=== PATIENT | female | born 1975 | race Caucasian/White ===

== ENCOUNTER 2017-02-15 14:13 | Inpatient (IN) | payer MEDICAID ==
[~2017-02-15] VITALS: Ht 152.4 cm; Wt 100.8 kg
[~2017-02-15 14:13] MED LIST: ALD25 PO; ALD50 PO; BACO TOP; CARVEDILOL6.25 M1 PO; COR6 PO; ECO81 PO; HIBICLENS118 ML TOP; KEN5C; LASIX40 MG PO; LEVOFLOXACIN750 M1 PO; NATURAL IRON65 MG PO; NICOTINE T14 MG/24 H TOP; PRENATAL VITAMI1 TA1 PO; ZES10 PO
[2017-02-15 15:42] LABS: CALCIUM 8.9 mg/dL (8.5-10.1); CARBON DIOXIDE 31.2 mmol/L (21-32); CREATININE SERUM 1.5 mg/dL (0.6-1.0); POTASSIUM SERUM 4.4 mmol/L (3.5-5.1)
[2017-02-15 15:47] LABS: BILIRUBIN TOTAL 2.79 mg/dL (0.20-1.00); TOTAL PROTEIN, SERUM 7.5 g/dL (6.4-8.2)
[2017-02-15 15:48] LABS: ALBUMIN 2.3 g/dL (3.4-5.0)
[2017-02-15 15:49] LABS: BASOPHIL % 0.2 % (0-2); PLATELET COUNT 293 x10^3mcL (130-400)
[2017-02-15 15:51] LABS: RED CELL DISTRIBUTION WIDTH 20.7 % (11.5-14.5)
[2017-02-15 15:54] LABS: rbc morphology (normal/abnorm) ABNORMAL (NORMAL)
[2017-02-15 18:08] LABS: T3 TOTAL 0.92 ng/mL
[2017-02-15 18:15] LABS: MAGNESIUM 2.1 mg/dL (1.8-2.4); PHOSPHOROUS 5.3 mg/dL (2.5-4.9)
[2017-02-15 18:16] LABS: CHOLESTEROL/HDL RATIO 6.3
[2017-02-15 18:35] LABS: FREE T4 1.14 ng/dL (0.76-1.46); FREE THYROXINE INDEX 2.3 ug/dL (1.4-4.5); T4(THYROXINE) 7.3 ug/dL (4.7-13.3)
[2017-02-15 18:50] VITALS: BP 120/95
[2017-02-15 21:17] VITALS: BP 103/26
[2017-02-15 22:17] LABS: microscopic required? NO
[2017-02-15 22:27] LABS: UA SPECIFIC GRAVITY 1.015 (1.005-1.035); urine erythrocyte NEGATIVE (NEGATIVE)
[2017-02-15 22:38] LABS: AMPHETAMINE QUAL UR POSITIVE (NEG <=1000)
[2017-02-16] VITALS (8 sets, daily range): BP systolic 98–119; BP diastolic 25–74
[2017-02-16 07:17] LABS: BASOPHIL % 0.4 % (0-2); PLATELET COUNT 247 x10^3mcL (130-400)
[2017-02-16 07:21] LABS: RED CELL DISTRIBUTION WIDTH 21.3 % (11.5-14.5)
[2017-02-16 07:22] LABS: CALCIUM 8.1 mg/dL (8.5-10.1); CREATININE SERUM 1.4 mg/dL (0.6-1.0); PHOSPHOROUS 4.6 mg/dL (2.5-4.9); POTASSIUM SERUM 3.2 mmol/L (3.5-5.1)
[2017-02-17 01:00] VITALS: BP 102/67
[2017-02-17 05:37] VITALS: BP 95/64
[2017-02-17 05:56] VITALS: Ht 152.4 cm; Wt 100.8 kg
[2017-02-17 06:57] LABS: PHOSPHOROUS 4.7 mg/dL (2.5-4.9)
[2017-02-17 07:41] LABS: BASOPHIL % 0.3 % (0-2); PLATELET COUNT 246 x10^3mcL (130-400)
[2017-02-17 07:46] LABS: RED CELL DISTRIBUTION WIDTH 20.9 % (11.5-14.5)
[2017-02-17 07:47] LABS: rbc morphology (normal/abnorm) ABNORMAL (NORMAL)
[2017-02-17 08:00] LABS: BILIRUBIN TOTAL 1.5 mg/dL (0.20-1.00); CALCIUM 8.3 mg/dL (8.5-10.1); CARBON DIOXIDE 30.7 mmol/L (21-32); CREATININE SERUM 1.6 mg/dL (0.6-1.0); POTASSIUM SERUM 3.8 mmol/L (3.5-5.1); TOTAL PROTEIN, SERUM 7.1 g/dL (6.4-8.2)
[2017-02-17 08:03] LABS: ALBUMIN 2.1 g/dL (3.4-5.0)
[2017-02-17 09:55] VITALS: BP 91/48
[2017-02-17 14:42] VITALS: BP 103/60; BP 146/96
[2017-02-17 17:57] VITALS: BP 146/79
[2017-02-17 20:31] VITALS: BP 97/56
[2017-02-18 05:57] VITALS: BP 99/55
[2017-02-18 06:00] LABS: BASOPHIL % 0.5 % (0-2); PLATELET COUNT 275 x10^3mcL (130-400)
[2017-02-18 06:12] LABS: RED CELL DISTRIBUTION WIDTH 20.9 % (11.5-14.5)
[2017-02-18 06:14] LABS: CALCIUM 8.3 mg/dL (8.5-10.1); CARBON DIOXIDE 28.1 mmol/L (21-32); CREATININE SERUM 1.5 mg/dL (0.6-1.0); MAGNESIUM 2.4 mg/dL (1.8-2.4); POTASSIUM SERUM 3.8 mmol/L (3.5-5.1)
[2017-02-18 08:20] LABS: rbc morphology (normal/abnorm) ABNORMAL (NORMAL); target cell (codocyte) 1+; tear drop cell (dacryocyte) 1+
[2017-02-18] MEDS ORDERED: LEVOFLOXACIN500 M1 PO (08:59)
[2017-02-18] MEDS ORDERED: CLINDAMYCIN HC300 MG PO (09:00)
[2017-02-18] MEDS ORDERED: LAC PO (09:01)
[2017-02-18] MEDS ORDERED: BACO TOP (09:02)
[2017-02-18] MEDS ORDERED: HIBICLENS118 ML TOP (09:04)
[2017-02-18 10:37] VITALS: BP 85/57
[2017-02-18] MEDS ORDERED: [UNRECOGNIZED DRUG - OTHER] TOP (11:07)
[2017-02-18] MEDS ORDERED: TOPROL XL25 MG PO (11:09)
[2017-02-18] MEDS ORDERED: COLACE100 MG PO (15:25)
[2017-02-18] MEDS ORDERED: NOR10T PO (15:26)
[2017-02-18] MEDS ORDERED: LORAZEPAM1 MG PO (15:27)
[2017-02-18 17:55] VITALS: BP 118/70
[2017-02-18 20:21] VITALS: BP 118/70
[2017-02-18 21:14] VITALS: BP 113/66
[2017-02-19 06:40] VITALS: BP 114/58
[2017-02-19 06:47] LABS: CALCIUM 8.4 mg/dL (8.5-10.1); CARBON DIOXIDE 24.3 mmol/L (21-32); CREATININE SERUM 1.5 mg/dL (0.6-1.0); POTASSIUM SERUM 4.6 mmol/L (3.5-5.1)
[2017-02-19 07:03] LABS: BASOPHIL % 0.3 % (0-2); PLATELET COUNT 318 x10^3mcL (130-400)
[2017-02-19 07:23] LABS: RED CELL DISTRIBUTION WIDTH 20.6 % (11.5-14.5); rbc morphology (normal/abnorm) ABNORMAL (NORMAL)
[2017-02-19 09:11] VITALS: BP 154/99
[2017-02-19] MEDS ORDERED: ZYVOX600 MG PO (12:11)
[2017-02-19 13:15] VITALS: BP 154/99
== END 2017-02-19 14:06 | disposition home or self-care (01) | DRG 384 ==
LOC: ED 14:13 → DU 17:15 → MU 02-17 12:45
PROVIDERS: Emergency Medicine; Family Medicine; ADMIT Family Medicine
DX: S80.212S Abrasion, left knee, sequela (principal); N17.0 Acute kidney failure with tubular necrosis; I50.43 Acute on chronic combined systolic (congestive) and diastolic (congestive) heart failure; E43 Unspecified severe protein-calorie malnutrition; I42.0 Dilated cardiomyopathy; L03.116 Cellulitis of left lower limb; I42.7 Cardiomyopathy due to drug and external agent; B95.2 Enterococcus as the cause of diseases classified elsewhere; Z68.41 Body mass index [BMI] 40.0-44.9, adult; E87.1 Hypo-osmolality and hyponatremia; T43.621S Poisoning by amphetamines, accidental (unintentional), sequela; F15.288 Other stimulant dependence with other stimulant-induced disorder; E83.39 Other disorders of phosphorus metabolism; E87.8 Other disorders of electrolyte and fluid balance, not elsewhere classified; F32.9 Major depressive disorder, single episode, unspecified; J44.9 Chronic obstructive pulmonary disease, unspecified; E80.6 Other disorders of bilirubin metabolism; E03.9 Hypothyroidism, unspecified; F17.210 Nicotine dependence, cigarettes, uncomplicated; Z59.0 Homelessness; Z22.322 Carrier or suspected carrier of Methicillin resistant Staphylococcus aureus; Z16.24 Resistance to multiple antibiotics; W01.0XXS Fall on same level from slipping, tripping and stumbling without subsequent striking against object, sequela
CPT/HCPCS: 80307; 83880; 84439; 94150; 97530-GP; J1170; J1885; J1940; J1956; J2001; J2270; J3490; J7030; J7620; Q0092

== ENCOUNTER 2017-02-23 23:56 | Emergency (ER) | payer MEDICAID ==
[~2017-02-23 23:56] MED LIST changes: +CLINDAMYCIN HC300 MG PO; +COLACE100 MG PO; +LAC PO; +LEVOFLOXACIN500 M1 PO; +LORAZEPAM1 MG PO; +NOR10T PO; +TOPROL XL25 MG PO; +ZYVOX600 MG PO; +[UNRECOGNIZED DRUG - OTHER] TOP
[2017-02-24 00:25] VITALS: BP 127/75
[2017-02-24 03:27] LABS: PLATELET COUNT 288 x10^3mcL (130-400)
[2017-02-24 03:28] LABS: BASOPHIL % 4.5 % (0-2); RED CELL DISTRIBUTION WIDTH 21.1 % (11.5-14.5)
[2017-02-24 03:42] LABS: CALCIUM 8.7 mg/dL (8.5-10.1); CREATININE SERUM 1.3 mg/dL (0.6-1.0); POTASSIUM SERUM 4.1 mmol/L (3.5-5.1)
[2017-02-24 03:47] LABS: TOTAL PROTEIN, SERUM 7.3 g/dL (6.4-8.2)
[2017-02-24 03:58] LABS: ALBUMIN 2.6 g/dL (3.4-5.0)
== END 2017-02-24 07:25 | disposition home or self-care (01) ==
LOC: ED 23:56
PROVIDERS: Emergency Medicine
DX: R60.0 Localized edema (principal); L03.116 Cellulitis of left lower limb; I11.0 Hypertensive heart disease with heart failure; Z88.8 Allergy status to other drugs, medicaments and biological substances; Z79.899 Other long term (current) drug therapy
CPT/HCPCS: 83880; J1885

== ENCOUNTER 2017-02-28 15:17 | Inpatient (IN) | payer MEDICAID ==
[~2017-02-28] VITALS: Ht 152.4 cm; Wt 99.3 kg
[2017-02-28 16:33] LABS: BASOPHIL % 0.1 % (0-2); PLATELET COUNT 387 x10^3mcL (130-400)
[2017-02-28 16:47] LABS: RED CELL DISTRIBUTION WIDTH 24.4 % (11.5-14.5)
[2017-02-28 17:15] LABS: CALCIUM 9.3 mg/dL (8.5-10.1); CARBON DIOXIDE 19.2 mmol/L (21-32); CREATININE SERUM 2.2 mg/dL (0.6-1.0); POTASSIUM SERUM 4.6 mmol/L (3.5-5.1)
[2017-02-28 17:16] LABS: ALBUMIN 3.3 g/dL (3.4-5.0); TOTAL PROTEIN, SERUM 8.7 g/dL (6.4-8.2)
[2017-02-28 20:55] LABS: CHOLESTEROL/HDL RATIO 2.5; MAGNESIUM 2.2 mg/dL (1.8-2.4); PHOSPHOROUS 4.7 mg/dL (2.5-4.9)
[2017-02-28 21:00] LABS: T3 TOTAL 1.01 ng/mL
[2017-02-28 21:03] LABS: FREE T4 1.93 ng/dL (0.76-1.46); FREE THYROXINE INDEX 3.9 ug/dL (1.4-4.5); T4(THYROXINE) 11.6 ug/dL (4.7-13.3)
[2017-02-28 21:37] VITALS: BP 139/92
[2017-02-28 21:45] VITALS: BP 139/92
[2017-03-01 02:58] VITALS: Ht 152.4 cm; Wt 99.3 kg
[2017-03-01 06:17] VITALS: BP 119/86
[2017-03-01 07:14] LABS: UA SPECIFIC GRAVITY >=1.030 (1.005-1.035); microscopic required? YES; urine erythrocyte NEGATIVE (NEGATIVE)
[2017-03-01 07:49] LABS: AMPHETAMINE QUAL UR POSITIVE (NEG <=1000)
[2017-03-01 07:54] LABS: BASOPHIL % 0.2 % (0-2); PLATELET COUNT 382 x10^3mcL (130-400)
[2017-03-01 07:55] LABS: RED CELL DISTRIBUTION WIDTH 24.7 % (11.5-14.5)
[2017-03-01 07:56] LABS: rbc morphology (normal/abnorm) ABNORMAL (NORMAL)
[2017-03-01 09:52] LABS: CALCIUM 9.6 mg/dL (8.5-10.1); CARBON DIOXIDE 11.9 mmol/L (21-32); CREATININE SERUM 2.3 mg/dL (0.6-1.0); POTASSIUM SERUM 5.3 mmol/L (3.5-5.1)
[2017-03-01 10:02] LABS: ALBUMIN 3.2 g/dL (3.4-5.0)
[2017-03-01 10:25] VITALS: BP 122/73
[2017-03-01 13:40] VITALS: BP 128/80
[2017-03-01 17:39] VITALS: BP 130/91
[2017-03-01 21:33] VITALS: BP 138/73
[2017-03-02 05:32] VITALS: BP 107/65
[2017-03-02 06:25] LABS: BASOPHIL % 0.4 % (0-2); PLATELET COUNT 305 x10^3mcL (130-400)
[2017-03-02 07:19] LABS: BILIRUBIN TOTAL 1.77 mg/dL (0.20-1.00); CALCIUM 8.3 mg/dL (8.5-10.1); CARBON DIOXIDE 18.4 mmol/L (21-32); CREATININE SERUM 2.3 mg/dL (0.6-1.0); MAGNESIUM 2.1 mg/dL (1.8-2.4); PHOSPHOROUS 4.6 mg/dL (2.5-4.9); POTASSIUM SERUM 3.8 mmol/L (3.5-5.1)
[2017-03-02 07:23] LABS: RED CELL DISTRIBUTION WIDTH 24.7 % (11.5-14.5)
[2017-03-02 07:25] LABS: ALBUMIN 2.5 g/dL (3.4-5.0)
[2017-03-02 09:13] VITALS: BP 111/70
[2017-03-02 13:30] VITALS: BP 112/72
[2017-03-02 17:07] VITALS: BP 130/64
[2017-03-02 21:26] VITALS: BP 95/55
[2017-03-03 05:50] VITALS: BP 96/51
[2017-03-03 06:34] LABS: BASOPHIL % 0.4 % (0-2); PLATELET COUNT 278 x10^3mcL (130-400)
[2017-03-03 07:22] LABS: CALCIUM 7.9 mg/dL (8.5-10.1); CREATININE SERUM 1.9 mg/dL (0.6-1.0); POTASSIUM SERUM 3.7 mmol/L (3.5-5.1)
[2017-03-03 07:25] LABS: RED CELL DISTRIBUTION WIDTH 25.6 % (11.5-14.5)
[2017-03-03 09:39] VITALS: BP 108/70
[2017-03-03 13:55] VITALS: BP 105/75
[2017-03-03 17:12] VITALS: BP 107/73
[2017-03-03 21:20] VITALS: BP 101/66
[2017-03-04 05:19] VITALS: BP 100/58
[2017-03-04 06:20] LABS: BASOPHIL % 0.3 % (0-2); PLATELET COUNT 240 x10^3mcL (130-400)
[2017-03-04 06:32] LABS: CALCIUM 8.1 mg/dL (8.5-10.1); CARBON DIOXIDE 30.8 mmol/L (21-32); CREATININE SERUM 1.5 mg/dL (0.6-1.0); POTASSIUM SERUM 3.7 mmol/L (3.5-5.1)
[2017-03-04 06:38] LABS: RED CELL DISTRIBUTION WIDTH 25.7 % (11.5-14.5)
[2017-03-04 08:40] LABS: rbc morphology (normal/abnorm) ABNORMAL (NORMAL)
[2017-03-04 10:10] VITALS: BP 111/63
[2017-03-04] MEDS ORDERED: NORCO1 TA2 PO (13:20)
[2017-03-04 13:46] VITALS: BP 111/63
== END 2017-03-04 14:23 | disposition home or self-care (01) ==
LOC: ED 15:17 → DU 19:58
PROVIDERS: Emergency Medicine; ADMIT Family Medicine
DX: K81.0 Acute cholecystitis (principal); N17.0 Acute kidney failure with tubular necrosis; I50.43 Acute on chronic combined systolic (congestive) and diastolic (congestive) heart failure; E44.0 Moderate protein-calorie malnutrition; Z68.41 Body mass index [BMI] 40.0-44.9, adult; E87.1 Hypo-osmolality and hyponatremia; I42.7 Cardiomyopathy due to drug and external agent; K76.0 Fatty (change of) liver, not elsewhere classified; T43.621S Poisoning by amphetamines, accidental (unintentional), sequela; I10 Essential (primary) hypertension; E03.9 Hypothyroidism, unspecified; F17.210 Nicotine dependence, cigarettes, uncomplicated; F15.10 Other stimulant abuse, uncomplicated; F32.9 Major depressive disorder, single episode, unspecified; Z53.09 Procedure and treatment not carried out because of other contraindication
CPT/HCPCS: 82962; 83880; 84439; B4164; J1610; J1885; J1940; J1956; J2270; J2550; J3010; J3490; J7030; J7042; Q0092

== ENCOUNTER 2017-03-11 01:57 | Emergency (ER) | payer MEDICAID ==
[~2017-03-11 01:57] MED LIST changes: +NORCO1 TA2 PO
[2017-03-11 02:59] LABS: CALCIUM 8.6 mg/dL (8.5-10.1); CARBON DIOXIDE 30.1 mmol/L (21-32); CREATININE SERUM 1.4 mg/dL (0.6-1.0); PLATELET COUNT 149 x10^3mcL (130-400); POTASSIUM SERUM 3.2 mmol/L (3.5-5.1)
[2017-03-11 03:00] LABS: BASOPHIL % 2.3 % (0-2); RED CELL DISTRIBUTION WIDTH 22.1 % (11.5-14.5)
[2017-03-11 03:03] LABS: BILIRUBIN TOTAL 1.84 mg/dL (0.20-1.00); TOTAL PROTEIN, SERUM 7.3 g/dL (6.4-8.2)
[2017-03-11 03:04] LABS: ALBUMIN 2.8 g/dL (3.4-5.0)
[2017-03-11 03:29] LABS: rbc morphology (normal/abnorm) ABNORMAL (NORMAL)
[2017-03-11 05:55] VITALS: BP 111/74
== END 2017-03-11 05:55 | disposition home or self-care (01) ==
LOC: ED 01:57
PROVIDERS: Emergency Medicine
DX: R25.2 Cramp and spasm (principal); R51 Headache; R06.00 Dyspnea, unspecified; K81.9 Cholecystitis, unspecified; E87.6 Hypokalemia; F32.9 Major depressive disorder, single episode, unspecified; I50.9 Heart failure, unspecified; I10 Essential (primary) hypertension; Z88.0 Allergy status to penicillin
CPT/HCPCS: 36415; Q0092

== ENCOUNTER 2017-03-27 19:20 | Inpatient (IN) | payer MEDICAID ==
[~2017-03-27] VITALS: Ht 152.4 cm; Wt 85.0 kg
--- NOTE | 2017-03-27 20:02 | NUR ---
PT RESTING IN BED WITH C/O LT LEG/KNEE PAIN S/P FALL IN FEBRUARY WITH INCREASING CELLULITIS/PAIN UP TO TODAY.
[2017-03-27 21:02] LABS: BASOPHIL % 0.9 % (0-2); PLATELET COUNT 211 x10^3mcL (130-400)
[2017-03-27 21:04] LABS: CALCIUM 8.4 mg/dL (8.5-10.1); CARBON DIOXIDE 28.7 mmol/L (21-32); CREATININE SERUM 1.2 mg/dL (0.6-1.0); POTASSIUM SERUM 3.1 mmol/L (3.5-5.1)
[2017-03-27 21:40] LABS: RED CELL DISTRIBUTION WIDTH 23.5 % (11.5-14.5)
[2017-03-27] MEDS ORDERED: ALDACTONE25 MG PO (22:28)
[2017-03-27] MEDS ORDERED: GABAPENTIN100 M2 PO (22:29)
--- NOTE | 2017-03-27 22:56 | NUR ---
REPORT GIVEN TO ALISON VARNER.
[2017-03-27 23:04] VITALS: BP 111/70
[2017-03-27 23:19] VITALS: BP 111/70
--- NOTE | 2017-03-27 23:22 | NUR ---
RECEIVED PATIENT FROM ED VIA GUERNEY, PATIENT IN NO ACUTE DISTRESS, NO C/O PAIN AT THIS TIME, ALERT AND ORIENTED, TELE # 14 ST, IV ACCESS TO RIGHT HAND WNL, ORIENTED PATIENT TO ROOM AND SURROUNDINGS, BED IN LOW POSITION, BED RAILS UP X 2, CALL LIGHT WITHIN REACH, WILL ENDORSE CARE TO PRIMARY NURSE SONIDO VRANER
[2017-03-27 23:43] LABS: MAGNESIUM 1.9 mg/dL (1.8-2.4)
[2017-03-27 23:47] LABS: CHOLESTEROL/HDL RATIO 3.1; FREE T4 1.26 ng/dL (0.76-1.46); FREE THYROXINE INDEX 2.6 ug/dL (1.4-4.5); T4(THYROXINE) 6.8 ug/dL (4.7-13.3)
--- NOTE | 2017-03-28 | NUR ---
REC'D REPORT FROM ALISON VARNER. ASSISTED PT TO VOID. AMBULATORY WITH STEADY GAIT. AAOX4, SPEECH CLEAR, FOLLOWS COMMANDS. ON TELE [address] DENIES CP, DIZZINESS, OR PALPITATIONS. REDNESS AND SWELLING TO LLE. ELEVATED WITH PILLOWS. NO COMPLAINTS AT THIS TIME. DENIES RESP DISTRESS, PAIN, OR DISCOMFORT. ORIENTED TO DEVICES AND SURROUNDINGS. CALL LIGHT WITHIN REACH, BED AT LOWEST POSITION. WILL CONTINUE TO MONITOR.
--- NOTE | 2017-03-28 00:11 | NUR ---
REC'D REPORT FROM ALISON VARNER. ASSISTED PT TO VOID. UA COLLECTED. AMBULATORY WITH STEADY GAIT. AAOX4, SPEECH CLEAR, FOLLOWS COMMANDS. ON TELE [address] DENIES CP, DIZZINESS, OR PALPITATIONS. REDNESS AND SWELLING TO LLE. ELEVATED WITH PILLOWS. NO COMPLAINTS AT THIS TIME. DENIES RESP DISTRESS, PAIN, OR DISCOMFORT. ORIENTED TO DEVICES AND SURROUNDINGS. CALL LIGHT WITHIN REACH, BED AT LOWEST POSITION. WILL CONTINUE TO MONITOR.
[2017-03-28 00:17] LABS: T3 TOTAL 1.05 ng/mL
--- NOTE | 2017-03-28 00:23 | NUR ---
UA TO BE COLLECTED. PT STATED SHE "REMEMBERS WIPING" BUT MIGHT HAVE MISSED THE HAT. INSTRUCTED TO TRY NOT TO MISS AND LEAVE URINE IN THE HAT. C/O ANXIETY, PAGEGATED DR. MEJIAS.
[2017-03-28 00:40] LABS: BILIRUBIN DIRECT 1.06 mg/dL (0.0-0.2); BILIRUBIN TOTAL 1.5 mg/dL (0.20-1.00); TOTAL PROTEIN, SERUM 7.6 g/dL (6.4-8.2)
[2017-03-28 01:14] VITALS: BP 111/70
--- NOTE | 2017-03-28 02:17 | NUR ---
NO ORDERS FOR ANXIETY MED. PT RESTING IN BED WITH EYES CLOSED, SNORING. NO SIGNS OF DISTRESS NOTED. BREATHING EVEN/UNLABORED ON RA. LLE ELEVATED WITH PILLOWS. WILL CONTINUE TO MONITOR.
--- NOTE | 2017-03-28 04:30 | NUR ---
URINE COLLECTED AND BROUGHT DOWN TO LAB
[2017-03-28 04:43] LABS: UA SPECIFIC GRAVITY >=1.030 (1.005-1.035); microscopic required? YES; urine erythrocyte NEGATIVE (NEGATIVE)
[2017-03-28 04:52] LABS: AMPHETAMINE QUAL UR POSITIVE (NEG <=1000)
--- NOTE | 2017-03-28 05:29 | NUR ---
PT RESTING IN BED, READING A BOOK. C/O ANXIETY. PT FEELS TIRED. SURPRISED WHEN I INFORMED HER SHE WAS SLEEPING/SNORING THROUGHOUT THE NIGHT. STATES SHE KEPT WAKING UP AND FEELING ANXIOUS. SPOKE TO DR. MEJIAS ABOUT THIS. REPORTED HE WILL ORDER SOMETHING. WILL GIVE ONCE VERIFIED BY PHARMACY. DENIES PAIN OR DISCOMFORT AT THIS TIME. LLE ELEVATED WITH PILLOWS. PT GAVE ME HER DAUGHTER JODY'S NUMBER TO INFORM HER OF HER HOSPITALIZATION. CALL LIGHT WITHIN REACH, BED AT LOWEST POSITION. WILL ENDORSE TO DAY NURSE.
[2017-03-28 05:59] VITALS: BP 103/67
--- NOTE | 2017-03-28 06:01 | NUR ---
ATIVAN GIVEN PER ORDER FOR ANXIETY. WILL MONITOR FOR RELIEF.
--- NOTE | 2017-03-28 06:21 | NUR ---
ATTEMPTED TO CALL DAUGHTER JODY WITH THE PHONE NUMBER GIVEN BY PT- STATED THE GIVEN FROM NUMBER FROM THE ASSESSMENT WAS INCORRECT. UNABLE TO REACH JODY. WAS LED TO THE VOICEMAILS OF OTHER PPL. PT MADE AWARE.
--- NOTE | 2017-03-28 07:10 | NUR ---
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
[2017-03-28 07:37] LABS: CREATININE SERUM 1.1 mg/dL (0.6-1.0); MAGNESIUM 2.1 mg/dL (1.8-2.4); PHOSPHOROUS 3.9 mg/dL (2.5-4.9); POTASSIUM SERUM 3.2 mmol/L (3.5-5.1)
[2017-03-28 07:43] LABS: BASOPHIL % 0.3 % (0-2); PLATELET COUNT 180 x10^3mcL (130-400)
[2017-03-28 07:44] LABS: RED CELL DISTRIBUTION WIDTH 24.3 % (11.5-14.5)
[2017-03-28 07:47] LABS: rbc morphology (normal/abnorm) ABNORMAL (NORMAL)
[2017-03-28 09:29] VITALS: BP 122/85
[2017-03-28 14:00] VITALS: BP 115/80
--- NOTE | 2017-03-28 15:44 | NUR ---
C/O INCREASED ANXIETY, REQUESTING DOSE OF ATIVAN, WILL ADMIN ORDERED.
[2017-03-28 17:45] VITALS: BP 102/67; BP 126/60
--- NOTE | 2017-03-28 18:05 | NUR ---
LATE ENTRY FOR 1640: BINDER CASER REPORTS PT IS NOT AROUSABLE, UPON ASSESSMENT, PT REACTS TO PAINFUL STIMULUS, O2 SAT 88% ORA, ASSISTED TO UPRIGHT POSITION, SLURRED SPEECH NOTED, PLACED ON OXYGEN VIA NC AT 2L/MIN, PATIENT BECAME RESPONSIVE, O2 SAT 96% ON ROOM AIR, PT REMOVED NC, REPORTS FEELING "VERY SLEEPY," DR JIMENEZ MADE AWARE, WILL CONTINUE TO MONITOR CLOSE FOR ALOC AND O2 SATS, CALL LIGHT WITHIN REACH.
--- NOTE | 2017-03-28 19:10 | NUR ---
PT RESTING IN BED WITH EYES CLOSED. SNORING. VERY DROWSY. AWAKENS WITH PAINFUL STIMULUS THEN QUICKLY FALLS ASLEEP AGAIN. UNABLE TO ASSESS ORIENTATION, PERRLA. NO SIGNS OF DISTRESS NOTED. BREATHING EVEN/UNLABORED ON RA. LUNG SOUNDS CLEAR. SOME REDENESS AND SWELLING TO LLE, DIE MAKER. ELEVATED WITH PILLOWS. VOIDING FREELY. AMBULATORY. CALL LIGHT WITHIN REACH, BED AT LOWEST POSITION. WILL CONTINUE TO MONITOR.
--- NOTE | 2017-03-28 19:31 | NUR ---
PT SNORING LOWDLY IN BED, AROUSABLE TO TOUCH, SLOW TO RESPOND, BUT ABLE TO OBINNA NEEDS KNOWN, CURRENT O2 SAT 94% ORA, DENIES SOB, DIZZINESS OR COLEMAN, REPORTS LLE PAIN /10, CONTROLLED AT THIS TIME, NO OTHER SIGNIFICANT CHANGES NOTED, CARE ENDORSED TO NIGHT NURSE.
[2017-03-28 21:15] VITALS: BP 113/60
--- NOTE | 2017-03-28 21:50 | NUR ---
DUE MEDS GIVEN. PT MORE EASILY AROUSABLE AND ABLE TO STAY AWAKE LONGER. FELL BACK ASLEEP AFTER GIVING MEDICATIONS. NO COMPLAINTS OF PAIN OR DISCOMFORT. WILL CONTINUE TO MONITOR.
--- NOTE | 2017-03-29 02:06 | NUR ---
PT C/O PAIN 04/12 TO LLE. NORCO GIVEN PER ORDER. NO SIGNS OF DISTRESS NOTED. BREATHING EVEN/UNLABORED ON RA. CALL LIGHT WITHIN REACH, BED AT LOWEST POSITION. WILL CONTINUE TO MONITOR.
[2017-03-29 05:41] VITALS: BP 103/65
--- NOTE | 2017-03-29 06:00 | NUR ---
PT UP TO VOID. STEADY GAIT. STILL SLEEPY. PICTURES TAKEN OF CELLULITIS TO LLE. ELEVATED WITH PILLOWS. REPORTS SOME KNEE PAIN BUT TOLERABLE. BREATHING EVEN/UNLABORED ON 2L O2 VIA NC. CALL LIGHT WITHIN REACH, BED AT LOWEST POSITION. NO SIGNIFICANT CHANGES DURING SHIFT. WILL ENDORSE TO DAY NURSE.
[2017-03-29 06:19] LABS: CALCIUM 8.4 mg/dL (8.5-10.1); CARBON DIOXIDE 28.1 mmol/L (21-32); CREATININE SERUM 1.1 mg/dL (0.6-1.0); MAGNESIUM 1.8 mg/dL (1.8-2.4); PHOSPHOROUS 3.8 mg/dL (2.5-4.9); POTASSIUM SERUM 3.8 mmol/L (3.5-5.1)
[2017-03-29 06:21] LABS: BASOPHIL % 0.3 % (0-2); PLATELET COUNT 175 x10^3mcL (130-400)
[2017-03-29 07:10] LABS: RED CELL DISTRIBUTION WIDTH 23.7 % (11.5-14.5)
--- NOTE | 2017-03-29 07:52 | NUR ---
RECEIVED SLEEPING BUT AROUSABLE. NO ACUTE DISTRESS NOTED, NO C/O PAIN OR DISCOMFORT. IVF INFUSING WELL AND SITE CLEAR. CALL LIGHT WITHIN REACH. WILL CONTINUE WITH PLAN OF CARE.
--- NOTE | 2017-03-29 09:00 | NUR ---
AM ROUNDS DONE BY DR. RICO AND MEDICAL TEAM, PLAN TO GET OOB AND AMBULATE. PT AGREED WITH PLAN. SLEEPING AT THIS TIME, NO DISTRESS NOTED. NO C/O PAIN OR DISCOMFORT.
[2017-03-29 09:06] VITALS: BP 95/53
[2017-03-29 13:45] VITALS: BP 112/70
--- NOTE | 2017-03-29 14:43 | NUR ---
PT NOTES PM CHART REVIEWED AND CLEARED FOR PT BY RN FOR 2ND SESSION. PATIENT IN SEMIFOWLER POSITION SLEEPING AND DIFFICULT TO AROUSE. PATIENT ABLE TO MAINTAIN AROUSAL FOR FEW SECONDS NEEDS HEAVY TACTILE STIMULUS TO MAINTAIN. PATIENT UNABLE TO MAINTAIN AROUSAL FOR ACTIVE PARTICIPATION IN THERAPY. PATIENT GIVEN A HAND OUT FOR FALL PREVENTION AND ATTEMPTS MADE TO EDUCATE, BUT CLOSES EYES AND SLEEPS. TRAY AND CALL LIGHT IN REACH. CONTACT ISOLATION OBSERVED. WILL FOLLOW UP PATIENT TOMORROW IF POSSIBLE. RN AWARE. PVEx1
--- NOTE | 2017-03-29 15:07 | NUR ---
STILL SLEEPY BUT AROUSABLE. NO ACUTE RESP. DISTRESS NOTED. NO C/O PAIN OR DISCOMFORT AT THIS TIME. CALL LIGHT WITHIN REACH.
--- NOTE | 2017-03-29 16:09 | NUR ---
PT REFUSED HOOSPICE EVAL, STATED "I AM NOT DYING , I'M HERE TO GET BETTER". DR. JIMENEZ MADE AWARE.
[2017-03-29 17:18] VITALS: BP 106/68
--- NOTE | 2017-03-29 17:50 | NUR ---
PT AWAKE AND ALERT. C/O PAIN TO LLE AND ANXIETY, MEDICATED WITH MORPHINE IVP
--- NOTE | 2017-03-29 20:00 | NUR ---
RECEIVED PT IN BED AWAKE, ALERT, ORIENTED X3. DROWSY, BUT EASILY AROUSABLE. NO DISTRESS NOTED. TELE 14 SHOWS NSR. NO CHEST PAIN NOTED. LLE SWELLING AND REDNESS NOTED, ELEVATED WITH PILLOW. 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 PRECAUTIONS ENFORCED. SHIFT ASSESSMENT COMPLETED. IVF INFUSING WELL AT 10ML/HR. SITE INTACT. CALL LIGHT WITHIN REACH. BED IS IN LOWEST POSITION. CALL LIGHT WITHIN REACH. WILL CONTINUE TO MONITOR CLOSELY.
[2017-03-29 21:51] VITALS: BP 117/68
--- NOTE | 2017-03-29 22:30 | NUR ---
PT APPEARS TO BE SLEEPING IN NO DISTRESS. ALL DUE MEDS GIVEN ORDERED, FSBS IS 109. CALL LIGHT WITHIN REACH. WILL CONTINUE TO MONITOR CLOSELY.
--- NOTE | 2017-03-30 01:10 | NUR ---
PT C/O PAIN TO LEFT KNEE, MEDICATE WITH NORCO ORDERED.
--- NOTE | 2017-03-30 03:30 | NUR ---
PT SLEEPING WITH NO FURTHER PAIN NOTED. IVF TKO. WILL CONTINUE TO MONITOR CLOSELY.
--- NOTE | 2017-03-30 05:20 | NUR ---
PT HAD A FOUR SECOND RUN OF VTACH, CHECKED STATUS OF PT, SLEEPING, EASILY AROUSABLE, DROWSY, DENIES CHEST PAIN OR PALPATIONS. BP IS 109/67 WITH MAP OF 81, HR 93. MADE AWARE.
[2017-03-30 05:23] VITALS: BP 110/75
--- NOTE | 2017-03-30 06:10 | NUR ---
FSBS IS 83. PT DROWSY, BUT ORIENTED X3. CLEOCIN INFUSING WELL AT THIS TIME. ALL NEEDS TENDED TO. WILL ENDORSE TO INCOMING SHIFT.
[2017-03-30 06:24] LABS: CALCIUM 8.6 mg/dL (8.5-10.1); CARBON DIOXIDE 27.6 mmol/L (21-32); CREATININE SERUM 1.2 mg/dL (0.6-1.0); MAGNESIUM 1.8 mg/dL (1.8-2.4); PHOSPHOROUS 4.3 mg/dL (2.5-4.9)
[2017-03-30 06:27] LABS: BASOPHIL % 0.2 % (0-2); PLATELET COUNT 189 x10^3mcL (130-400)
--- NOTE | 2017-03-30 07:10 | NUR ---
RECEIVED Pt. SLEEPY EASILY AROUSABLE ORIENTED X4. RESPIRATIONS EVEN AND UNLABORED. NO DISTRESS NOTED. DENIES PAIN/DISCOMFORT AT THIS TIME. ON CONTACT PRECAUTIONS. TELE IN PLACE HEART RATE 103. DENIES CHEST PAIN/PRESSURE. IVF RUNNING TO IV AT RIGHT HAND PATENT AND INTACT. LLE WITH REDNESS AND SWELLING NOTED. BED LOW/LOCKED. CALL LIGHT IN REACH.
[2017-03-30 07:18] LABS: RED CELL DISTRIBUTION WIDTH 23.7 % (11.5-14.5)
--- NOTE | 2017-03-30 08:00 | NUR ---
MADE ROUNDS WITH DR. ACEVES AND MEDICINE TEAM, Pt. TO CONTINUE IV ANTIBIOTICS AND AGREED WITH PLAN OF CARE.
--- NOTE | 2017-03-30 09:34 | NUR ---
Pt. IV AT RIGHT HAND SALINE LOCKED.
[2017-03-30 10:00] VITALS: BP 106/63
--- NOTE | 2017-03-30 11:00 | NUR ---
Pt. SHOWERED AND GOWN CHANGED. Pt. CLEAN AND DRY.
[2017-03-30 14:36] VITALS: BP 112/68
--- NOTE | 2017-03-30 15:09 | NUR ---
PT NOTES TIME [id number] CLEARED BY RN FOR P.M. P.T. TX. PATIENT DECLINED PM P.T. TX AT THIS TIME. EDUCATED PATIENT ON THE IMPORTANCE OF THERAPY & RISK/COMPLICATIONS OF IMMOBILIZATION. PATIENT VERBALIZED UNDERSTANDING, BUT STILL DECLINED. RN NOTIFIED. PRIMARY THERAPIST AWARE. PAZE
--- NOTE | 2017-03-30 16:11 | NUR ---
PHYSICAL THERAPY DAILY NOTES CO-SIGN All documentation done by the Rrt for 03/30/17 has been reviewed. I agree with the documentation. Reviewed/Co-Signed by: Monique Duran DPT Documentation Done by:DARLEEN CHILDERS, DELL I CONCUR W/A.M. DIRECTOR OF MUSIC THERAPY NOTES. CONTINUE W/POC TO Pt TOLERANCE.
--- NOTE | 2017-03-30 17:58 | NUR ---
Pt. REMAINS AAOX4. RESPIRATIONS EVEN AND UNLABORED RA. DENIES PAIN/DISCOMFORT AT THIS TIME. NO DISTRESS NOTED. TELE IN PLACE. IV RIGHT HAND SALINE LOCKED. LLE SLIGHT SWELLING AND REDNESS STILL NOTED. CONTACT PRECAUTIONS OBSERVED. BED LOW/LOCKED. CALL LIGHT IN REACH.
--- NOTE | 2017-03-30 20:06 | NUR ---
PT CURRENTLY RESTING IN BED, NO ACUTE DISTRESS. A/O X4, PT STATES SHE IS FEELING MILD ANXIOUS. TELE #14 SHOWING SINUS TACHYCARDIA. PULSES PALPABLE IN ALL EXTREMITIES, EDEMA NOTED TO LLE. LUNG SOUNDS CTA BILATERALLY. BOWEL SOUNDS ACTIVE, LAST BM 03/29/17. VOIDING WELL. MILD GENERALIZED WEAKNESS NOTED, LLE WEAKNESS NOTED. LLE REDNESS, CELLULITIS. DENIES PAIN AT THIS TIME. IV PATENT AND INTACT. BED IN LOWEST POSITION, SIDE RAILS UP X2, SCDS IN PLACE, CALL LIGHT WITHIN REACH. WILL CONTINUE TO MONITOR.
[2017-03-30 22:39] VITALS: BP 114/76
--- NOTE | 2017-03-31 01:00 | NUR ---
PT CURRENTLY RESTING IN BED, NO ACUTE DISTRESS. WILL CONTINUE TO MONITOR.
[2017-03-31 06:06] VITALS: BP 117/77
[2017-03-31 06:17] LABS: CALCIUM 9.1 mg/dL (8.5-10.1); CARBON DIOXIDE 28.8 mmol/L (21-32); CREATININE SERUM 1.1 mg/dL (0.6-1.0); POTASSIUM SERUM 3.7 mmol/L (3.5-5.1)
--- NOTE | 2017-03-31 06:41 | NUR ---
PT SLEPT PERIODICALLY THROUGHOUT NIGHT, NO ACUTE DISTRESS. ALL NEEDS MET AND ATTENDED TO. NO SIGNIFICANT CHANGES. IV PATENT AND INTACT. BED IN LOWEST POSITION, SIDE RAILS UP X2, SCDS IN PLACE, CALL LIGHT WITHIN REACH. WILL ENDORSE CARE TO ONCOMING NURSE.
--- NOTE | 2017-03-31 08:00 | NUR ---
PT A/A/O/X4. SPEECH APPROPRIATE. DENIES PAIN OR DIZZINESS. ON TELE 22 WITH SINUS RHYTHM. 3L O2 ON NC. RESPIRATIONS EVEN AND UNLABORED. PT STATES SOB ON EXERTION AT TIMES. ON RT PROTOCOLO. SKIN INTACT AND WARM TO TOUCH. PALPABLE PULSES BILAT. PT AMBULATES TO BATHROOM, USES BEDSIDE COMMODE WELL. IV ON LFA. VISITOR/FRIEND PRESENT. NO SIGNS OF DISTRESS. CALL LIGHT IN REACH. WILL CONTINUE TO MONITOR.
--- NOTE | 2017-03-31 08:10 | NUR ---
RECEIVED PT A/A/O/X4 RESTING IN BED WITH EYES CLOSED, RESPIRATIONS EQUAL AND SLIGHTLY LABORED. 95% ON ROOM AIR. ON TELE 14 SINUS RHYTHM. PULSES PALPABLE BUT WEAK BILAT. PT AMBULATES TO BATHROOM. LLE RED AND WARM. EDEMA ON LLE. PT DENIES PAIN. RT HAND IV SALINE LOCKED. CALL LIGHT IN REACH. WILL CONTINUE TO MONITOR.
[2017-03-31 09:53] VITALS: BP 114/78
--- NOTE | 2017-03-31 13:03 | NUR ---
PT RESTING IN BED WITH EYES CLOSED. RESPIRATIONS EQUAL AND SLIGHTLY LABORED. NO SIGNS OF DISCOMFORT OR DISTRESS. WILL CONTINUE TO MONITOR.
[2017-03-31 13:39] VITALS: BP 116/73
--- NOTE | 2017-03-31 14:30 | NUR ---
PT AMBULATED TO RESTROOM. NO SIGNS OF DISCOMFORT. DENIES PAIN. CALL LIGHT IN REACH. WILL CONTINUE TO MONITOR.
--- NOTE | 2017-03-31 14:50 | NUR ---
PT EASILY FATIGUED BUT AROUSABLE. WHEN SPEAKING TO PT WOULD NOT OPEN EYES BUT RESPONSES WERE APPROPRIATE. NO APPARENT DISTRESS. WILL CONTINUE TO MONITOR.
--- NOTE | 2017-03-31 14:56 | NUR ---
PT NOTES P.M. CLEARED BY RN FOR P.T. TX. PATIENT IS ASLEEP (1420), BUT AROUSABLE. PATIENT IS DECLINING TO PARTICIPATE IN P.T. TX. PATIENT IS ENCOURAGED TO PARTICIPATE, BUT STATES, "THEY JUST GAVE ME MY PAIN MEDICATION AND I AM REALLY SLEEPY." EDUCATED ON THE IMPORTANCE OF THERAPY, BUT STILL DECLINES. RN IS AWARE. WILL NOTIFY PRIMARY THERAPIST. JOE
--- NOTE | 2017-03-31 15:46 | NUR ---
PHYSICAL THERAPY DAILY NOTES CO-SIGN All documentation done by the Recovery Assistant for 03/31/17 has been reviewed. I agree with the documentation. I CONCUR W/PRECISION AGRICULTURE SPECIALIST NOTE; CONT PER TX PLAN Reviewed/Co-Signed by: Amy Venegas V PT Documentation Done by: DARLEEN CHILDERS PRECISION AGRICULTURE SPECIALIST
[2017-03-31 15:50] VITALS: BP 116/73
--- NOTE | 2017-03-31 17:23 | NUR ---
PT SITTING AT BED SIDE CHAIR WITH LEG ELEVATED. DENIES ANY PAIN OR DISCOMFORT. WILL CONTINUE TO MONITOR.
[2017-03-31 17:48] VITALS: BP 134/65
--- NOTE | 2017-03-31 18:30 | NUR ---
PT RESTING IN BED WITH EYES CLOSED, RESPIRATIONS EQUAL AND SLIGHTLY LABORED. PT EASILY FATIGUED BUT AROUSABLE. DENIES PAIN OR DISCOMFORT. PHYSICIAN CONSULT FOR DEPRESSION, AWAITING RESULTS AND FURTHER ORDERS. CALL LIGHT IN REACH.
--- NOTE | 2017-03-31 20:00 | NUR ---
SHIFT REASSESSMENT DONE.PATIENT SLEEPY,AROUSED EASILY.BREATHING EASY.ON CONTACT ISOLATION,BUT YANELY CHARGE NURSE SAY TO DISCONTINUE ISOLATION.TELE 14 SR/ST.BREATHING EASY AT THIS TIME.PATIENT ON PHYSICAL THERAPY,LLE/NWB,CELLULITIS.OOB TO CHAIR AT DAYTIME.NS AT 10 CC/ HOUR R HAND.SCD ORDERED.PATIENT CALL LITE IN REACH.
[2017-03-31 21:55] VITALS: BP 115/71
--- NOTE | 2017-03-31 22:00 | NUR ---
PATIENT VERY QUIET,SAYS SHE IS OK.NS AT 10 CC/ HOUR.TELE [address]
[2017-03-31 23:03] VITALS: Ht 152.4 cm; Wt 85.0 kg
--- NOTE | 2017-04-01 01:26 | NUR ---
AMBULATE TO RESTROOM WHEN NEEDED.
--- NOTE | 2017-04-01 04:00 | NUR ---
PATIENT UP AND ABOUT TO RESTROOM,VOIDING.
[2017-04-01 05:48] VITALS: BP 109/68
[2017-04-01 06:16] LABS: CALCIUM 9.2 mg/dL (8.5-10.1); CHLORIDE SERUM 100 mmol/L (98-107); GFR1 > 60 mL/min; GLUCOSE SERUM 80 mg/dL (74-106); MAGNESIUM 1.9 mg/dL (1.8-2.4); PHOSPHOROUS 4.6 mg/dL (2.5-4.9); POTASSIUM SERUM 3.5 mmol/L (3.5-5.1); SODIUM SERUM 137 mmol/L (136-145)
--- NOTE | 2017-04-01 06:18 | NUR ---
PATIENT PULLED IV ACCIDENTALLY.WILL REINSERT.
--- NOTE | 2017-04-01 06:18 | NUR ---
I AND O MEASURED.PATIENT WANTING SNACKS AND GIVEN.
[2017-04-01 06:30] LABS: BASOPHIL % 0.5 % (0-2); PLATELET COUNT 207 x10^3mcL (130-400)
--- NOTE | 2017-04-01 07:48 | NUR ---
RECEIVED PT A/A/O/X4 SLEEPING IN BED, RESPIRATIONS EQUAL AND SLIGHTY LABORED. ON TELE 14 SINUS TACH. REDNESS AND EDEMA PRESENT ON LLE. PT AMBULATES TO BATHROOM. NEW IV 20G ON LEFT HAND. CALL LIGHT IN REACH. WILL CONTINUE TO MONITOR.
[2017-04-01 09:00] VITALS: BP 126/88
--- NOTE | 2017-04-01 09:18 | NUR ---
PT RESTING IN BED WITH EYES CLOSED, NO SIGNS OF APPRARENT DISTRESS. CALL LIGHT IN REACH. WILL CONTINUE TO MONITOR.
[2017-04-01 09:19] LABS: tear drop cell (dacryocyte) 1+
[2017-04-01 09:20] LABS: rbc morphology (normal/abnorm) ABNORMAL (NORMAL)
[2017-04-01 13:48] VITALS: BP 103/56
--- NOTE | 2017-04-01 14:35 | NUR ---
PT COMPLAINED OF CONSTANT ACHING LEFT KNEE PAIN 6/10. GAVE NORCO PER PRN MED ORDERS. PT STATES NO LONGER HAS KNEE PAIN, 0/10. WILL CONTINUE TO MONITOR.
--- NOTE | 2017-04-01 14:59 | NUR ---
PT SLEEPING IN BED, VISIBLE RESPIRATIONS. NO APPARENT SIGNS OF DISTRESS. CALL LIGHT IN REACH. WILL CONTINUE TO MONITOR.
--- NOTE | 2017-04-01 15:35 | NUR ---
PT NOTES CLEARED BY RN FOR P.T. TX. FIRST ATTEMPT (518), PATIENT DECLINED TX. PATIENT STATES, "MY KNEE HURTS." ADDITIONALLY, PATIENT STATED "I JUST GOT A NORCO." PATIENT WAS EDUCATED ON THE IMPORTANCE OF THERAPY & THE RISK/COMPLICATIONS OF IMMOBILIZATION. PATIENT VERBALIZED UNDERSTANDING, BUT STILL REFUSED. RN NOTIFIED. PRIMARY THERAPIST AWARE. PVE
[2017-04-01 17:11] VITALS: BP 95/47
--- NOTE | 2017-04-01 19:44 | NUR ---
SHIFT REASSESSMENT DONE.PATIENT ALERT AND ORIENTED,RESPONDING WELL TO QUESTIONS,REMINDED TO BE CAREFUL WITH HER IV.PATIENT BREATHING EASY AT THIS TIME,SOB NOTED WHEN SHE GETS UP.PHYSICAL TX LLE NON WT BEARING.NS AT 10 CC L HAND.TELE [address]CALL LIGHT IN REACH.
[2017-04-01 21:54] VITALS: BP 118/49
--- NOTE | 2017-04-01 23:54 | NUR ---
ALL PM MEDS GIVEN,REMINDED PATIENT TO PLUG BACK BATTERY AFTER RESTROOM,IV FOUND OFF,NS TKO.IV SITE GOOD.
--- NOTE | 2017-04-02 01:58 | NUR ---
PATIENT CHECKED AT INTERVALS FOR NEEDS AND SAFETY.NS AT 10 CC/ HOUR.
--- NOTE | 2017-04-02 05:47 | NUR ---
PATIENT AM MEDS GIVEN,SWALLOWS WELL.BLOOD SUGAR 195,WILL GIVE 3U RI.WILL ENDORSE TO NEXT SHIFT.
--- NOTE | 2017-04-02 05:50 | NUR ---
AM MEDS GIVEN.BLOOD SUGAR THIS AM 87.WILL ENDORSE TO NEXT SHIFT.
[2017-04-02 06:12] VITALS: BP 99/59
[2017-04-02 06:12] LABS: BASOPHIL % 0.4 % (0-2); PLATELET COUNT 237 x10^3mcL (130-400)
[2017-04-02 06:31] LABS: CALCIUM 9.1 mg/dL (8.5-10.1); CARBON DIOXIDE 24.5 mmol/L (21-32); CREATININE SERUM 1.1 mg/dL (0.6-1.0); PHOSPHOROUS 4.8 mg/dL (2.5-4.9); POTASSIUM SERUM 3.9 mmol/L (3.5-5.1)
[2017-04-02 06:37] LABS: rbc morphology (normal/abnorm) ABNORMAL (NORMAL)
[2017-04-02 06:38] LABS: tear drop cell (dacryocyte) 1+
--- NOTE | 2017-04-02 07:15 | NUR ---
RECEIVED Pt. AAOX4 RESPIRATIONS EVEN AND UNLABORED. DENIES PAIN/DISCOMFORT AT THIS TIME. NO DISTRESS NOTED. TELE IN PLACE HR 95. IVF RUNNING TO IV AT LEFT HAND PATENT AND INTACT. NO SWELLING NOTED LLE SLIGHT REDNESS STILL NOTED. BED LOW/LOCKED. CALL LIGHT IN REACH.
--- NOTE | 2017-04-02 08:30 | NUR ---
MADE ROUNDS WITH DR. ACEVES AND MEDICINE TEAM, CONTINUE TO FIND PLACEMENT FOR Pt. AND AGREED WITH PLAN OF CARE.
--- NOTE | 2017-04-02 08:36 | NUR ---
Pt. SALINE LOCKED.
[2017-04-02 10:00] VITALS: BP 102/48
--- NOTE | 2017-04-02 10:15 | NUR ---
Pt. C/O LEFT KNEE PAIN 8/10 SCALE, NORCO 10/325 GIVEN WILL CONTINUE TO MONITOR.
--- NOTE | 2017-04-02 12:10 | NUR ---
Pt. VERBALIZED SOME RELIEF POST NORCO.
[2017-04-02 14:00] VITALS: BP 90/48
[2017-04-02 18:00] VITALS: BP 93/60
--- NOTE | 2017-04-02 18:03 | NUR ---
Pt. AAOX4. RESPIRATIONS EVEN AND UNLABORED.NO DISTRESS AT THIS TIME. NO C/O PAIN/DISCOMFORT AT THIS TIME. TELE IN PLACE. IV SALINE LOCKED AT LEFT HAND. LLE WITH SOME REDNESS STILL NOTED. BED LOW/LOCKED. CALL LIGHT IN REACH.
--- NOTE | 2017-04-02 20:00 | NUR ---
RECEIVED PT IN BED, ALERT AND ORIENTED. DENIES HEADACHE/DIZZINESS. RESP. EVEN AND UNLABORED. ON ROOM AIR, SAT. 96%, NO DISTRESS NOTED.ST ON THE MONITOR, DENIES CHEST PAIN OR PRESSURE. AFEBRILE AND VITAL SIGNS STABLE. HL TO LT HAND, INTACT AND PATENT. REDNESS AND SWELLING TO LLE, PEDAL PULSE PALPABLE. ELEVATED ON PILLOW. ABLE TO MOVE ALL EXTS. ASSISTED WITH HS CARE. CALL LIGHT WITHIN REACH. WILL CONTINUE TO MONITOR.
[2017-04-02 21:21] VITALS: BP 108/69
--- NOTE | 2017-04-02 22:20 | NUR ---
DUE MEDS GIVEN ORDERED. MARCELLE. WELL. COMPLAINED OF LT KNEE PAIN,03/13, REQUESTING PAIN MED. MEDICATED WITH NORCO 1TAB PO ORDERED.WILL CONTINUE TO MONITOR.
--- NOTE | 2017-04-02 22:38 | NUR ---
PT STATES PAIN RELIEF AT THIS TIME, DOOZING OFF AND ON. WILL CONTINUE TO MONITOR.
--- NOTE | 2017-04-03 01:48 | NUR ---
ASLEEP. EASILY AROUSABLE. NO DISTRESS NOTED. WILL CONTINUE TO MONITOR.
[2017-04-03 05:29] VITALS: BP 122/59
--- NOTE | 2017-04-03 06:38 | NUR ---
NO SIGNIFICANT CHANGE NOTED IN PT,S CONDITION. SLEPT WELL. AFEBRILE AND VITAL SIGNS STABLE. RESP. EVEN AND UNLABORED. NO DISTRESS NOTED. DENIES PAIN OR ANY DISCOMFORT AT THIS TIME. DUE MEDS GIVEN ORDERED. MARCELLE.WELL. WILL ENDORSE TO INCOMING NURSE.
[2017-04-03 06:49] LABS: BASOPHIL % 0.7 % (0-2); CALCIUM 9.2 mg/dL (8.5-10.1); CARBON DIOXIDE 27.9 mmol/L (21-32); CREATININE SERUM 1.1 mg/dL (0.6-1.0); MAGNESIUM 1.9 mg/dL (1.8-2.4); PHOSPHOROUS 4.5 mg/dL (2.5-4.9); PLATELET COUNT 252 x10^3mcL (130-400); POTASSIUM SERUM 3.5 mmol/L (3.5-5.1)
--- NOTE | 2017-04-03 07:15 | NUR ---
RECEIVED Pt. AAOX4, RESPIRATIONS EVEN AND UNLABORED. DENIES PAIN/DISCOMFORT AT THIS TIME. NO DISTRESS NOTED. TELE IN PLACE 97. IV AT LEFT HAND SALINE LOCKED. BED LOW/LOCKED. CALL LIGHT IN REACH.
--- NOTE | 2017-04-03 07:35 | NUR ---
MADE ROUNDS WITH DR. ACEVES AND MEDICINE TEAM, CONTINUE TO FIND PLACEMENT FOR Pt. AND AGREED WITH PLAN OF CARE.
[2017-04-03 09:16] VITALS: BP 94/62
--- NOTE | 2017-04-03 09:37 | NUR ---
AM MEDICATIONS GIVEN SCHEDULED HELD ALDACTONE,LASIX AND LISINOPRIL DUE TO LOW BP DR. BURGER AWARE.
--- NOTE | 2017-04-03 12:35 | NUR ---
Pt. C/O LEFT KNEE PAIN 6/10 SCALE NORCO GIVEN WILL CONTINUE TO MONITOR.
[2017-04-03 13:19] VITALS: BP 113/73
--- NOTE | 2017-04-03 13:40 | NUR ---
Pt. VERBALIZED SOME RELIEF POST NORCO 3/10 SCALE.
--- NOTE | 2017-04-03 17:25 | NUR ---
Pt. C/O LEFT KNEE PAIN 7/10 SCALE NORCO GIVEN WILL CONTINUE TO MONITOR.
[2017-04-03 17:41] VITALS: BP 108/65
--- NOTE | 2017-04-03 18:01 | NUR ---
PHYSICAL THERAPY DAILY NOTES CO-SIGN All documentation done by the [employer] for 04/03/17 has been reviewed. I agree with the documentation. Reviewed/Co-Signed by: Avril Colmenares DPT Documentation Done by: Jose Hallman MARKET RESEARCH MANAGER Patient olinda tx well, progressing towards goals, increased gait and steadiness. Cont with PT POC as olinda/safe.
--- NOTE | 2017-04-03 18:04 | NUR ---
Pt. AAOX4, RESPIRATIONS EVEN AND UNLABORED. NO DISTRESS NOTED. TELE IN PLACE. IV LEFT HAND SALINE LOCKED. SOME REDNESS STILL NOTED AT LLE, BED LOW/LOCKED. CALL LIGHT IN REACH.
--- NOTE | 2017-04-03 18:39 | NUR ---
PHYSICAL THERAPY DAILY NOTES CO-SIGN All documentation done by the Police Stenographer for 04/02/17 has been reviewed. I agree with the documentation. Reviewed/Co-Signed by: Avril Colmenares, BOSSMAN Documentation Done by: Oli Ca PTA Patient fairly olinda tx, slowly progressing towards goals, limited gait olinda d/t fatigue. Cont with PT POC as olinda/safe.
--- NOTE | 2017-04-03 19:30 | NUR ---
A&O X 4. LUNG SOUNDS CLEAR BUT DIMINISHED BILATERAL, ON RA. TELE #14, NSR. RADIAL AND PEDAL PULSES PALPABLE, NO EDEMA NOTED. BOWEL SOUNDS ACTIVE X 4 QUADRANTS. REDNESS WITHOUT SWELLING NOTED TO LEFT KNEE, OTHERWISE SKIN INTACT. SALINE LOCKED TO THE LEFT HAND, NO REDNESS 0R SWELLING. DENIES PAIN. BED IN LOW POSITION, CALL LIGHT IN REACH. INSTRUCTED TO CALL FOR ASSISTANCE.
[2017-04-03 21:26] VITALS: BP 110/63
--- NOTE | 2017-04-04 01:00 | NUR ---
RESTING IN BED WITH EYES CLOSED. BREATHING EVEN AND UNLABORED. NO ACUTE DISTRESS NOTED. IV PATENT AND INFUSING ABX. BED IN LOW POSITION, CALL LIGHT IN REACH. WILL CONTINUE TO MONITOR.
[2017-04-04 06:03] VITALS: BP 104/66
--- NOTE | 2017-04-04 06:30 | NUR ---
RESTING IN BED WITH EYES CLOSED. BREATHING EVEN AND UNLABORED, ON RA. ON ACUTE DISTRESS NOTED. SALINE LOCKED TO LEFT HAND, NO REDNESS OR SWELLING. NO ACUTE CHANGES DURING SHIFT. BED IN LOW POSITION, CALL LIGHT IN REACH. WILL ENDORSE TO ONCOMING RN.
[2017-04-04 07:05] LABS: BASOPHIL % 0.6 % (0-2); PLATELET COUNT 244 x10^3mcL (130-400)
--- NOTE | 2017-04-04 07:20 | NUR ---
RECEIVED Pt. AAOX4, RESPIRATIONS EVEN AND UNLABORED. DENIES PAIN/DISCOMFORT. NO DISTRESS NOTED. TELE IN PLACE ST HR 103. IV AT LEFT HAND SALINE LOCKED. BED LOW/LOCKED. CALL LIGHT IN REACH.
[2017-04-04 07:37] LABS: RED CELL DISTRIBUTION WIDTH 23.3 % (11.5-14.5)
[2017-04-04 07:52] LABS: CALCIUM 9.2 mg/dL (8.5-10.1); CARBON DIOXIDE 29.4 mmol/L (21-32); CHLORIDE SERUM 100 mmol/L (98-107); GFR1 > 60 mL/min; GLUCOSE SERUM 73 mg/dL (74-106); MAGNESIUM 2.1 mg/dL (1.8-2.4); POTASSIUM SERUM 3.9 mmol/L (3.5-5.1); SODIUM SERUM 137 mmol/L (136-145)
--- NOTE | 2017-04-04 07:55 | NUR ---
MADE ROUNDS WITH DR. ACEVES AND MEDICINE TEAM, CONTINUE TO FIND PLACEMENT FOR Pt. AND AND AGREED WITH PLAN OF CARE.
[2017-04-04 09:36] VITALS: BP 102/53
[2017-04-04 12:48] VITALS: BP 116/68
--- NOTE | 2017-04-04 14:27 | NUR ---
Pt. EYES CLOSED APPEARS ASLEEP, NO SIGNS OF PAIN/DISCOMFORT AT THIS TIME.
[2017-04-04 18:06] VITALS: BP 108/69
--- NOTE | 2017-04-04 18:40 | NUR ---
Pt. EYES CLOSED APPEARS TO BE SLEEPING, RESPIRATIONS EVEN AND UNLABORED. NO SIGNS OF PAIN/DISCOMFORT AT THIS TIME. TELE IN PLACE. IV SALINE LOCKED TO LEFT HAND. BED LOW/LOCKED. CALL LIGHT IN REACH.
--- NOTE | 2017-04-04 19:20 | NUR ---
A&O X 4. LUNG SOUNDS CLEAR BUT DIMINISHED BILATERAL, ON RA. TELE #14, HR: 112. RADIAL AND PEDAL PULSES PALPABLE, NO EDEMA NOTED. BOWEL SOUNDS ACTIVE X 4 QUADRANTS. REDNESS WITHOUT SWELLING NOTED TO LEFT KNEE, OTHERWISE SKIN INTACT. SALINE LOCKED TO THE LEFT HAND, NO REDNESS 0R SWELLING. DENIES PAIN. BED IN LOW POSITION, CALL LIGHT IN REACH. FAMILY AT BEDSIDE. INSTRUCTED TO CALL FOR ASSISTANCE.
[2017-04-04 21:16] VITALS: BP 112/64
--- NOTE | 2017-04-05 01:00 | NUR ---
RESTING IN BED WITH EYES CLOSED. BREATHING EVEN AND UNLABORED, ON RA. NO ACUTE DISTRESS NOTED. SALINE LOCKED TO LEFT HAND, NO REDNESS OR SWELLING. BED IN LOW POSITION, CALL LIGHT IN REACH. WILL CONTINUE TO MONITOR.
[2017-04-05 05:28] VITALS: BP 107/56
[2017-04-05 05:41] LABS: BASOPHIL % 0.7 % (0-2); PLATELET COUNT 224 x10^3mcL (130-400)
[2017-04-05 06:07] LABS: CALCIUM 8.7 mg/dL (8.5-10.1); CARBON DIOXIDE 27.2 mmol/L (21-32); CHLORIDE SERUM 103 mmol/L (98-107); GFR1 > 60 mL/min; GLUCOSE SERUM 74 mg/dL (74-106); MAGNESIUM 1.9 mg/dL (1.8-2.4); PHOSPHOROUS 4.2 mg/dL (2.5-4.9); POTASSIUM SERUM 3.7 mmol/L (3.5-5.1); SODIUM SERUM 138 mmol/L (136-145)
[2017-04-05 06:46] LABS: rbc morphology (normal/abnorm) ABNORMAL (NORMAL); tear drop cell (dacryocyte) 1+
--- NOTE | 2017-04-05 09:34 | NUR ---
AT 0720 - RECEIVED PATIENT FROM NIGHT NURSE. PATIENT SLEEPING. RESPIRATIONS REGULAR. MONITOR SHOWING SINUS RHYHTM/SINUS TACH; RATE 110. IV SALINE LOCKED. AT 0745 - PATIENT AWAKE, ALERT AND ORIENTED. HAS EATEN BREAKFAST. L KNEE CELLULITS APPEARS TO HAVE SUBSIDED ACCORDING TO MARKINGS BUT PATIENT STIL REPORTS SOME PAIN. AT 0757 - SEEN BY DR VANCE DURING MORNING ROUNDS. MEDICAL TEAM DOCTORS, MAGDA MALDONADO AND MYSELF PRIMARY NURSE ALSO PRESENT. DR SAMSON SPOKE WITH PATIENT ABOUT PLAN OF CARE WHICH INCLUDES [facility] WHEN BED AVAILABLE. PATIENT EXPRESSED AGREEMENT BUT WANTS HER FAMILY INVOLVEMENT. AT 0845 - GIVEN NORCO PER EMAR FOR L KNEE PAIN.
[2017-04-05 10:00] VITALS: BP 112/65
--- NOTE | 2017-04-05 13:05 | NUR ---
QUIET MORNING. NO FURTHER C/O KNEE PAIN. HAS BEEN TAKEN OFF CARDIAC MONITORING STATUS CHANGED TO MED-SURG. PATIENT ENCOURAGED TO USE INSENTIVE SPIROMETER. SON AT BEDSIDE.
[2017-04-05 14:22] VITALS: BP 110/73
--- NOTE | 2017-04-05 14:33 | NUR ---
AMBULATED IN HALLWAY WITH PT.
--- NOTE | 2017-04-05 16:26 | NUR ---
P.T. NOTES AM Pt WAS SEEN EARLY AM; REFUSED TO PARTICIPATE W/ P.T.; Pt VERBALLY RESPONSIVE, BODY FACING HER WINDOW, SHADES CLOSED, LIGHTS OFF, NOT OPENING HER EYES; EXPLAINED BENEFITS OF THERAPY, Pt STILL REFUSED, STATES "THE PAIN HAS TO GO AWAY FIRST", WAS PRE MEDICATED, NURSE & CASE MGMT AWARE; CALL [facility], PHONE, TABLE IN REACH; WILL TRY LATER. JOE
[2017-04-05 17:51] VITALS: BP 111/66
--- NOTE | 2017-04-05 18:33 | NUR ---
PATIENT REMAINS UNCHANGED. VSS. R KNEE PAIN UNDER CONTROL WITH PO NORCO PER EMAR. EATING WELL. AMBULATORY IN ROOM. WILL ENDORSE CARE TO NIGHT NURSE.
--- NOTE | 2017-04-05 19:34 | NUR ---
PT. AWAKE, ALERT, ORIENTED X4. DENIES HEADACHE OR DIZZINESS. BREATH SOUNDS CLEAR THROUGHOUT LUNG OGLESBY, RESP. EVEN, UNLABORED. NO SOB NOTED. DENIES ANY CHESTPAIN OR DISCOMFORT. PEDAL PULSES STRONG KIRK. LT. KNEE REGION MARKED FOR CELLULITIS, NO EXTENSION OF REDNESS BEYOND BORDERS. ABD. SOFT AND ROUND, BOWEL SOUNDS ACTIVE. DENIES ABD. PAIN, DENIES NAUSEA. IV HEPLOCKED, FLUSHING WELL. CALL LIGHT WITHIN REACH.
[2017-04-05 20:46] VITALS: BP 99/66
--- NOTE | 2017-04-06 03:43 | NUR ---
PT. SLEEPING, EYES CLOSED. APPEARS COMFORTABLE. CALL LIGHT REMAINS WITHIN REACH.
[2017-04-06 06:05] VITALS: BP 118/68
--- NOTE | 2017-04-06 08:05 | NUR ---
DR. YEE AND MED TEAM PRESENT AT BEDSIDE FOR AM ROUNDS. UPDATED PT ON DC PLAN TO [facility] TODAY.
[2017-04-06] MEDS ORDERED: L40 PO (09:26)
[2017-04-06] MEDS ORDERED: NEU100 PO (09:27)
[2017-04-06] MEDS ORDERED: ECO81 PO (09:27)
[2017-04-06] MEDS ORDERED: ALD25 PO (09:33)
[2017-04-06] MEDS ORDERED: ZES10 PO (09:34)
[2017-04-06] MEDS ORDERED: VENTOLIN H0.09 MG/A1 INH (09:35)
[2017-04-06] MEDS ORDERED: LORAZEPAM1 MG PO (09:36)
[2017-04-06 10:00] VITALS: BP 119/86
[2017-04-06 10:55] VITALS: BP 119/86
[2017-04-06] MEDS ORDERED: NORCO1 TA2 PO (11:12)
[2017-04-06] MEDS ORDERED: COLACE100 MG PO (11:12)
--- NOTE | 2017-04-06 11:25 | NUR ---
PT PROVIDED WITH DC INSTRUCTIONS. MEDICATION AND PRESCRIPTION EDUCATION PROVIDED. MADE AWARE PRESCRIPTIONS HAVE BEEN SENT TO PT SELECTED PHARMACY. PRINTED PRESCRIPTIONS GIVEN FOR CONTROLLED MEDICATIONS. MADE AWARE TO CALL PCP OFFICE TOMORROW TO SCHEDULE APPT WITHIN 3-5 DAYS. PROVIDED WITH HF HANDOUT. PT VERBALIZED UNDERSTANDING.
== END 2017-04-06 11:25 | disposition hospice, home (50) | DRG 720 ==
LOC: ED 19:20 → DU 22:07 → MU 04-05 12:57
PROVIDERS: Emergency Medicine; Family Medicine; ADMIT Family Medicine
DX: A41.9 Sepsis, unspecified organism (principal); N17.0 Acute kidney failure with tubular necrosis; I50.43 Acute on chronic combined systolic (congestive) and diastolic (congestive) heart failure; E44.0 Moderate protein-calorie malnutrition; I42.0 Dilated cardiomyopathy; F15.20 Other stimulant dependence, uncomplicated; J44.9 Chronic obstructive pulmonary disease, unspecified; R65.20 Severe sepsis without septic shock; S82.092A Other fracture of left patella, initial encounter for closed fracture; I11.0 Hypertensive heart disease with heart failure; L03.116 Cellulitis of left lower limb; F41.9 Anxiety disorder, unspecified; E87.6 Hypokalemia; F32.9 Major depressive disorder, single episode, unspecified; E80.6 Other disorders of bilirubin metabolism; D64.9 Anemia, unspecified; E66.9 Obesity, unspecified; F17.210 Nicotine dependence, cigarettes, uncomplicated; X58.XXXA Exposure to other specified factors, initial encounter; Y93.89 Activity, other specified; Y92.89 Other specified places as the place of occurrence of the external cause; Z59.0 Homelessness; Z68.36 Body mass index [BMI] 36.0-36.9, adult
CPT/HCPCS: 82962; 83880; 84439; 94150; 97110-GP; 97116-GP; 97530-GP; J1885; J1956; J2060; J2270; J3490; J7030; J7050; J7613; J7620; J7644; Q0092

== ENCOUNTER 2017-07-14 03:15 | Emergency (ER) | payer MEDICAID ==
[~2017-07-14 03:15] MED LIST changes: +ALDACTONE25 MG PO; +GABAPENTIN100 M2 PO; +L40 PO; +NEU100 PO; +VENTOLIN H0.09 MG/A1 INH
[2017-07-14 04:19] LABS: PLATELET COUNT 214 x10^3mcL (130-400)
[2017-07-14 04:27] LABS: BASOPHIL % 5.9 % (0-2); RED CELL DISTRIBUTION WIDTH 14.6 % (11.5-14.5)
[2017-07-14 04:32] LABS: BILIRUBIN TOTAL 0.68 mg/dL (0.20-1.00); CALCIUM 8.4 mg/dL (8.5-10.1); CARBON DIOXIDE 26.1 mmol/L (21-32); CREATININE SERUM 1.6 mg/dL (0.6-1.0); POTASSIUM SERUM 3.7 mmol/L (3.5-5.1); TOTAL PROTEIN, SERUM 6.7 g/dL (6.4-8.2)
[2017-07-14 04:34] LABS: ALBUMIN 3.2 g/dL (3.4-5.0)
[2017-07-14 06:20] VITALS: BP 135/86
== END 2017-07-14 06:20 | disposition home or self-care (01) ==
LOC: ED 03:15
PROVIDERS: Emergency Medicine
DX: R07.89 Other chest pain (principal); Z76.0 Encounter for issue of repeat prescription; F17.210 Nicotine dependence, cigarettes, uncomplicated; I11.0 Hypertensive heart disease with heart failure; I50.9 Heart failure, unspecified; J44.9 Chronic obstructive pulmonary disease, unspecified; F41.9 Anxiety disorder, unspecified
CPT/HCPCS: 36415; 83880; J7613; J7644; Q0092

== ENCOUNTER 2017-07-28 23:42 | Inpatient (IN) | payer MEDICAID ==
[~2017-07-28] VITALS: Ht 157.5 cm; Wt 84.8 kg
[2017-07-29] VITALS (17 sets, daily range): BP systolic 120–146; BP diastolic 65–101
--- NOTE | 2017-07-29 00:08 | NUR ---
PT BROUGHT IN BY [facility] VIA AMBULANCE FROM LOCAL [facility]. PER ROXEI FIRE, PT WAS FOUND ROLLING ON THE GROUND AND NOTED TO BE "OUT OF IT", NOT ACTING APPROPRIATELY. PER ROXIE FIRE, BLOOD SUGAR TAKEN ON FIELD TWICE, 34 & 84. PT NOTED TO BE LAYING IN BED SUPINE POSITION. NO SX OF DISTRESS NOTED AT THIS TIMES.
--- NOTE | 2017-07-29 00:32 | NUR ---
PT UNABLE TO STAY STILL. PT ATTEMPTED TO GET OUT OF BED MULTIPLE TIMES. PT INFORMED REASON FOR SIDERAILS IS TO PREVENT FALL. PT UNABLE TO STAY AWAKE, PT EASILY FALLS ASLEEP. SNORING HEARD. SEIZURE PADS IN PLACE FOR PT SAFETY.
[2017-07-29 00:46] LABS: BASOPHIL % 0.4 % (0-2); PLATELET COUNT 207 x10^3mcL (130-400)
--- NOTE | 2017-07-29 00:48 | NUR ---
XRAY AT BEDSIDE.
[2017-07-29 00:57] LABS: CALCIUM 8.6 mg/dL (8.5-10.1); CARBON DIOXIDE 30.7 mmol/L (21-32); CHLORIDE SERUM 104 mmol/L (98-107); CREATININE SERUM 1.5 mg/dL (0.6-1.0); GFR1 40 mL/min; GLUCOSE SERUM 72 mg/dL (74-106); POTASSIUM SERUM 3.5 mmol/L (3.5-5.1); SODIUM SERUM 141 mmol/L (136-145)
[2017-07-29 01:03] LABS: AMPHETAMINE QUAL UR POSITIVE (NEG <=1000)
--- NOTE | 2017-07-29 01:14 | NUR ---
PT ATTEMPTING TO GET OUT OF BED. PT REMINDED IMPORTANCE TO STAY IN BED AND REASON FOR SIDERAILS AND SIEZURE PADS ARE FOR HER SAFETY.
[2017-07-29 01:25] LABS: ALBUMIN 3.2 g/dL (3.4-5.0); ALKALINE PHOSPHATASE 178 U/L (46-116); ALT/SGPT 71 U/L (14-59); AST/SGOT 63 U/L (15-37); BILIRUBIN TOTAL 0.7 mg/dL (0.20-1.00); CHOLESTEROL 93 mg/dL (<200); HDL CHOLESTEROL 33 mg/dL (40-60)
--- NOTE | 2017-07-29 01:26 | NUR ---
SNORING HEARD UPON RM APPROACHMENT. VISIBLE CHEST RISE NOTED UPON INHALATION. NO SX OF DISTRESS NOTED AT THIS TIME.
--- NOTE | 2017-07-29 02:00 | NUR ---
PT OBTUNDED,DIFFICULT TO AROUSE WITH STIMLI. PT TO INTUBATED BY DR GLASGOW, WITH RT AND RT ANGELICA, GARDENIA Perez AND MYSELF, GARDENIA CUNNINGHAM, AT PT SIDE.
--- NOTE | 2017-07-29 03:00 | NUR ---
DIPRIVAN STARTED AT THIS TIME, DUE TO PT BEGINNING TO BITE DOWN ON VENT AND MOVING ALL EXTREMITIES. WILL CONTINUE TO MONITOR.
--- NOTE | 2017-07-29 03:10 | NUR ---
PT CONTINUES TO MOVE AND FIGHT VENITLATOR. INCREASED DIPRIVAN TO 25MCG/KG/MIN.
--- NOTE | 2017-07-29 03:15 | NUR ---
INCREASED 30MCG/KG/MIN. PT CONTINUES TO MOVE EXTREMITIES AND FIGHTING VENTILATOR, WHILE NURSES WERE ATTEMPTING TO ESTABLISH SECOND IV ACCESS.
--- NOTE | 2017-07-29 03:34 | NUR ---
INCREASED DIPRIVAN TO 40MCG/KG/MIN DUE TO PT CONTINUING TO MOVE BODY AND FIGHTING VENITLATOR, MOVING TONGUE AROUND ET TUBE.
--- NOTE | 2017-07-29 03:35 | NUR ---
ADMISSION REPORT GIVEN TO GARDENIA FISH EXT [phone] TO CONTINUE CARE.
--- NOTE | 2017-07-29 03:37 | NUR ---
MED REC AND BELONGINGS UNOBTAINABLE.
[2017-07-29 05:53] LABS: PHOSPHOROUS 3.4 mg/dL (2.5-4.9)
[2017-07-29 05:54] LABS: CHOLESTEROL/HDL RATIO 2.6
[2017-07-29 06:00] LABS: T3 TOTAL 1.01 ng/mL
[2017-07-29 06:05] LABS: FREE T4 1.4 ng/dL (0.76-1.46); FREE THYROXINE INDEX 2.9 ug/dL (1.4-4.5); T4(THYROXINE) 8.6 ug/dL (4.7-13.3)
--- NOTE | 2017-07-29 07:17 | NUR ---
REPORT GIVEN TO GARDENIA GEORGE, WILL ENDORSE CARE
--- NOTE | 2017-07-29 08:15 | NUR ---
MADE AWARE OF PATIENTS PUPIL TO LEFT EYE 2MM AND SLUGGISH, AND RIGHT EYE 4MM AND SLUGGISH, WILL CONTINUE TO MONITOR.
--- NOTE | 2017-07-29 08:50 | NUR ---
AT BEDSIDE ASSESSING PATIENT, PATIENT IS DIAPHORETIC, TEMPERATURE 97.8, MADE AWARE OF PUPIL TO LEFT EYE 2MM AND PUPIL TO RIGHT EYE 4MM, SAID TO ORDER BLOOD CULTURE, WILL CONTINUE TO MONITOR.
--- NOTE | 2017-07-29 11:00 | NUR ---
TUBE FEEDING NUTREN PULMONARY STARTED AT 10ML/HR WITH 50ML FWF Q4H, WILL CONTINUE TO MONITOR.
--- NOTE | 2017-07-29 11:10 | NUR ---
MADE AWARE OF CXR RESULTS, WILL CONTINUE TO MONITOR.
--- NOTE | 2017-07-29 12:02 | NUR ---
UA SENT TO LAB, WILL CONTINUE TO MONITOR.
--- NOTE | 2017-07-29 12:34 | NUR ---
SOFT WRIST RESTAINTS TAKEN OFF WILL CONTINUE TO MONITOR.
--- NOTE | 2017-07-29 12:45 | NUR ---
PATIENT DIAPHORETIC, TEMPERATURE 99.1, HR 88, CHECKED BLOOD SUGAR AND IT WAS 92, NO NEW ORDERS AND WILL CONTINUE TO MONITOR.
[2017-07-29 12:52] LABS: microscopic required? YES; urine erythrocyte TRACE (NEGATIVE)
--- NOTE | 2017-07-29 14:50 | NUR ---
AT BEDSIDE ASSESSING PATIENT, PATIENTS FAMILY AT BESIDE, MADE AWARE NA WAS 146 TODAY AND IVF WERE CHANGED TO 1/2 NS AT 100ML/HR, POTASSIUM WAS 2.7 TODAY AM LABS AND PATIENT HAS RECEIVED A TOTAL OF 40MEQ IV TODAY, SAID HE WILL ORDER ANOTHER 40MEQ OF POTASSIUM IV, AND ALSO TO INCREASE FWF TO 200ML Q4H AND IF PATIENT IS TOLERATING FWF IVF COULD BE DECREASED, WILL FOLLOW ORDERS AND WILL CONTINUE TO MONITOR.
--- NOTE | 2017-07-29 15:00 | NUR ---
CHECKED TUBE FEEDING RESIDUALS AND HAD NO RESIDUALS, INCREASED NUTREN PULMONARY TO 20ML/HR, WILL CONTINUE TO MONITOR.
--- NOTE | 2017-07-29 16:28 | NUR ---
Initial Nutrition Assessment Dx: Intubated, metabolic encephaloptahy, HTN PMHx: cardiomyopathy, methamphetamine abuse, COPD, heart failure, hypertension, MDD, PSHx:None Labs:07/29: BL, BUN:26H, Cr:1.5H, AST:63H, ALT:71H, CK:460H, HDL:36L, A1c:6 Meds:Aldactone, Diprivan, Lasix, Lopressor, Prilosec, NS IV, Solumedrol, Zofran Current Nutrition Support: Nutren Pulmoanry at 30ml/hr. Free water flush: 50ml q4hr. PO Intake:N/A due to pt to start on TF Ht: 62, 5'2" Wt: 196#, 89.04kg BMI: 35.9kg/m2 (obesity class II) IBW:110#, 50kg %IBW:178% adj bw:131#, 60kg UBW:unable to obtain Weight hx: (02/2017) 220#, 100kg Age:42 y/o female Food Allergies:unable to obtain Skin:intact Bro: 13 Edema:trace to BUE GI:active bowel sounds Last BM : none recorded Consult: TF rate adjustment Pt admitted with poss Acute respiratory failure, intubated and sedated, toxic encephalopathy secondary to methamphetmaine use and ACSDHF with EF:10-15%. During visit, pt was seen intubated, sedated on Propofol at 10.8ml/vy=505ince, +OGT with Nutren Pulmonary running at 30ml/hr. Spoke to Dr. Quintana about increasing goal rate to 45ml/hr and keep free water flush to 50ml q4hr due to pt with CHF. Recent wt change:-24# in past 5 months %wt change:10.9% severe Vitamin/Supplement use:unable to obtain Special diet at home:unable to obtain Physical activity:unable to obtain Education: not appropriate due to pt intubated with no family at bedside. Estimated Nutritional Needs Based on adjusted body weight 60 kg Ventilator in L/min:8.39 Temperature:37.3C MAP:108 Energy: 1712kcal/d (PSU 2003b for vent support) Protein: 72-90g/d (1.2-1.5g/kg for vent support using adj body weight) Fluid: 1200ml/d (20ml/kg for CHF) or per doctor Nutrition Diagnosis 1. Inadequate eneteral nutrition support related to low TF rate as evidenced by pt only meeting 63% caloric needs and 68% protein needs. Intervention 1.Recommend increase TF of Nutren Pulmonary to 45ml/hr, free water flush 50ml q4hr. This provides 1620kcal (meets 95% caloric needs) 73g pro (this meets 100% protein needs) and 1145ml free water daily. Monitor/Evaluate Goal: TF to meet 80% estimated needs with tolerance Monitor: TF intake/tolerance, Labs, GI function F/U in 2-3 days as high risk:07/31-
--- NOTE | 2017-07-29 16:31 | NUR ---
1.Recommend increase TF of Nutren Pulmonary to 45ml/hr, free water flush 50ml q4hr. This provides 1620kcal (meets 95% caloric needs) 73g pro (this meets 100% protein needs) and 1145ml free water daily.
--- NOTE | 2017-07-29 18:07 | NUR ---
IVF DECREASED TO 60ML/HR PER DOCTORS ORDER, WILL CONTINUE TO MONITOR.
--- NOTE | 2017-07-29 18:12 | NUR ---
DR. RAMSEY ATTEMPTING TO CONTACT PT'S AT THIS TIME IN REGARDS TO PLAN OF CARE AND CURRENT STATUS. NO ANSWER.
--- NOTE | 2017-07-29 19:05 | NUR ---
RECEIVED REPORT FROM GARDENIA GEORGE, WILL ENDORSE CARE
--- NOTE | 2017-07-29 19:50 | NUR ---
PT ON VENT SEDATED FIO2 40, VT 500, RR 16, PEEP 5, RESPONDS TO PAINFUL STIMULI, PUPILS SLUGGISH UNEQUAL. GENERALIZED WEAKNESS. FULL PASSIVE ROM, BOLAND ACTIVE ROM. NO S/S OF HEADACHE. TRACHEA MIDLINE, NO DRAINAGE EENT, NO COUGH OR SECRETIONS, ORAL MUCOSA PINK AND DRY, ORAL CAR EPROVIDED. HR101, BP 123/93, MAP 104. CHEST WALL STABLE, NO CP, DIZZINESS, OR SYNCOPE. SKIN APPROPRIATE FOR ETHNICITY, COOL AND DRY, CAP REFILL <3 PULSES PALPABLE. NO CONTRACTURES OR DEFORMITIES. NUTREN PULMONARY INFUSING, TOLERATING. ABD SOFT, ROUND NONTENDER, BOWEL SOUNDS ACTIVE NO BM. F/C IN PLACE DRAINING TO GRAVITY, URINE YELLOW, NO LABIAL EDEMA OR DRAINAGE. CALM AND COOPERATIVE. WILL CONTINUE TO MONITOR
--- NOTE | 2017-07-29 20:00 | NUR ---
TITRATED NUTREN PULMONARY TO 30ML, WILL CONTINUE TO MONITOR
--- NOTE | 2017-07-29 23:35 | NUR ---
TITRATED NUTREN PULMONARY TO 40ML, WILL CONTINUE TO MONITOR
[2017-07-30] VITALS (17 sets, daily range): BP systolic 110–154; BP diastolic 71–99
--- NOTE | 2017-07-30 00:31 | NUR ---
PT DIAPHRETIC BS 167, WILL CONTINUE TO MONITOR
--- NOTE | 2017-07-30 05:14 | NUR ---
SEDATION VACATION ATTEMPTED, PT TRIED TO GET OUT OF BED, SO RESTARTED SEDATION, TITRATED NUTREN PULMONARY TO 45ML WHICH IS GOAL, WILL CONTINUE TO MONITOR
[2017-07-30 05:45] LABS: BASOPHIL % 1.2 % (0-2); PLATELET COUNT 235 x10^3mcL (130-400)
--- NOTE | 2017-07-30 05:55 | NUR ---
BED BATH GIVEN CHG WIPES USED, GOWN AND LINEN CHANGED, WILL CONTINUE TO MONITOR
[2017-07-30 06:03] LABS: CALCIUM 9.1 mg/dL (8.5-10.1); CARBON DIOXIDE 30.4 mmol/L (21-32); CREATININE SERUM 1.6 mg/dL (0.6-1.0); MAGNESIUM 2.3 mg/dL (1.8-2.4); PHOSPHOROUS 3.5 mg/dL (2.5-4.9)
--- NOTE | 2017-07-30 07:25 | NUR ---
REPORT RECEIVED FROM [facility] SHIFT RN POLINA, UPDATES PROVIDED, ALL QUESTIONS ANSWERED ALL CONCERNS ADDRESSED. WILL ASSUME CARE AND ASSESS SHORTLY.
--- NOTE | 2017-07-30 08:30 | NUR ---
DR BAIG, DR LEVIN AND RESIDENTS ROUNDING AT THIS TIME. UPDATES PROVIDED. PT DIAPHORETIC AND TACHYCARDIC WITHOUT FEVER. VQ SCAN TO BE ORDERED. SEDATIVES CHANGED.
--- NOTE | 2017-07-30 09:45 | NUR ---
KIRK SOFT WRIST RESTRAINTS PLACED AT THIS TIME DUE TO PATIENT ATTEMPTING TO PULL ON ETT.
--- NOTE | 2017-07-30 09:58 | NUR ---
VERSED INCREASED TO 4 MG/HR AT THIS TIME DUE TO PATIENT BECOMING INCREASINGLY RESTLESS.
--- NOTE | 2017-07-30 11:43 | NUR ---
VERSED INCREASED TO 2 AT THIS TIME DUE TO PATIENT BEING INCREASINGLY RESTLESS.
--- NOTE | 2017-07-30 13:52 | NUR ---
Follow-up Nutrition Assessment Dx:intubated, metabolic encephalopathy, HTN Labs: (07/30) BH, BUN:30H, Cr:1.6H, WBC:15.5H, H/H:15.2/48H Meds: Aldactone, Humulin, Lasix, Prilosec, NS IV, Solumedrol, Versed, Zofran Current Nutrition Support: TF Nutren Pulmonary at 45ml/hr. Free water flush:50ml q4hr TF intake:07/30:420ml I/O:07/30:2752/1400(+1353ml) Residuals:07/30:0ml Weights: 07/29:196#,89kg 07/30:212.7#96kg Weight: +16# wt gain in 1 day, questionable. Skin: intact Edema: None Last BM: None noted During visit, observed pt laying in bed intubated sedated on Versed with TF running at goal rate of 45ml/hr. Pt with no BM since yesterday. Per bed huddle this morning, pt diaphoretic and tachycardic without fever. VQ scan to be ordered and sedatives were changed. Estimated Nutritional Needs unchanged from prior assessment:adjusted body weight: 60kg Energy: 1712kcal/day (PSU 2003b for vent support) Protein: 72-90g/day (1.2-1.5g/kg for vent support) Fluid: 1200ml/day (20ml/kg for CHF) or per doctor Nutrition Diagnosis 1. Inadequate enteral nutrition support related to low TF rate as evidenced by pt only meeting 63% caloric needs and 68% protein needs (met, TF increased to goal rate) Intervention 1. Recommend continue with TF of Nutren Pulmonary at 45ml/hr, free water flush 50ml q4hr. This provides 1620kcal (meets 95% caloric needs) and 73g pro (meets 100% protein needs ) and 1145ml free water daily. Monitor/Evaluate Previous goal: TF to meet 80% est needs with tolerance (not met) Goal: TF to meet 80% est needs with tolerance Monitor: TF intake/tolerance, Labs (Renal : BUN, Cr and BG), GI function F/U in 2-3 days as high risk :08/01-
--- NOTE | 2017-07-30 14:12 | NUR ---
PATIENT PLACED BACK ON SEDATION AT THIS TIME. SEDATION VACATION OVER. PATIENT OPENS EYES SPONTANEOUSLY, AND FOLLOWS COMMANDS APPROPRAITELY. PATIENT AGITATED AND UPON REORIENTATION PATIENT NODDED UNDERSTANDING OF HER CURRENT MEDICAL STATUS.
--- NOTE | 2017-07-30 14:13 | NUR ---
VERSED STARTED AT 1 MG/HR.
--- NOTE | 2017-07-30 14:40 | NUR ---
DR. RAMSEY BEDSIDE. PATIENT TO BE CONTINUED ON LOW DOSE SEDATION.
--- NOTE | 2017-07-30 19:00 | NUR ---
REPORT GIVEN TO NOC SHIFT GARDENIA BROWN, UPDATES PROVIDED, ALL QUESTION ANSWERED ALL CONCERNS ADDRESSED. WILL ASSUME CARE AND ASSESS SHORTLY.
[2017-07-31] VITALS (19 sets, daily range): BP systolic 102–129; BP diastolic 62–99
[2017-07-31 06:32] LABS: BASOPHIL % 0.2 % (0-2); PLATELET COUNT 215 x10^3mcL (130-400)
[2017-07-31 06:39] LABS: CALCIUM 8.8 mg/dL (8.5-10.1); CARBON DIOXIDE 28.5 mmol/L (21-32); CREATININE SERUM 1.3 mg/dL (0.6-1.0); POTASSIUM SERUM 4.8 mmol/L (3.5-5.1)
[2017-07-31 06:49] LABS: RED CELL DISTRIBUTION WIDTH 16.8 % (11.5-14.5)
--- NOTE | 2017-07-31 07:00 | NUR ---
REPORT RECEIVED FROM ANDERSON BROWN, UPDATES PROVIDED, ALL QUESTIONS ANSWERED ALL CONCERNS ADDRESSED.
--- NOTE | 2017-07-31 07:25 | NUR ---
PATIENT ASSESSED AT THIS TIME. PATIENT IS LYING IN BED CALMLY, INTUBATED ON VENT, TUBE FEEDING IN PLACE VIA OGT WITH NUTREN PULM INFUSING. SCD'S IN PLACE. ETT TAPED AND SECURED. SEE SHIFT ASSESSMENT FOR FURTHER DETAILS.
--- NOTE | 2017-07-31 07:26 | NUR ---
SEDATION TURNED OFF AT THIS TIME FOR SEDATION VACTION.
--- NOTE | 2017-07-31 07:40 | NUR ---
SEDATION TURNED BACK ON AT THIS TIME. PATIENT GCS: 9T. OPENS EYES TO VERBAL STIMULI, AND FOLLOWS COMMANDS.
--- NOTE | 2017-07-31 08:12 | NUR ---
SEDATION INCREASED TO 4 MG/HR AT THIS TIME DUE TO PATIENT ATTEMPTING TO GET OUT OF BED DESPITE CONSTANT REORIENTATION.
--- NOTE | 2017-07-31 09:15 | NUR ---
DR. RICO AND RESIDENTS ROUNDING AT THIS TIME, UPDATES PROVIDED BY CUFF RUNNER SHIRA. NO NEW ORDERS RECEIVED.
--- NOTE | 2017-07-31 11:05 | NUR ---
PATIENT REASSESSED AT THIS TIME, NO ACUTE CHANGES. PATIENT REMAINS ON AC MODE RATE 16, Vt 500, FIO2 30, PEEP 5. SEDATION IS VERSED AT 4 MG/HR RSS OF 4 NOTED. SEE SHIFT ASSESSMENT FOR FURTHER DETAILS.
--- NOTE | 2017-07-31 15:40 | NUR ---
DR. WEBB BEDSIDE WITH PATIENT AT THIS TIME, UPDATES PROVIDED, PATIENT TO BEGIN CPAP TOMORROW AND SEDATION TO BE HELD PRIOR TO CPAP.
--- NOTE | 2017-07-31 19:00 | NUR ---
RECEIVED REPORT FROM NURSE PENNY. PT SEDATED ON VERSED 4MG/HR. MRSS 4. UNABLE TO ASSESS VERBAL DUE TO INTUBATION WITH ETT AND OGT. PT GRIMACES TO PAINFUL STIMULI PER FLACC SCALE. PT DOES NOT OPEN EYES. PT DOES NOT FOLLOW COMMANDS. BILAT PUPILS ARE FIXED, 2MM. GAG REFLEX NOTED. NO SCLERAL EDEMA. INTUBATED WITH ETT AND OGT. TRACHEA MIDLINE. ORAL MUCOSA PINK AND DRY. NO EENT DRAINAGE NOTED AT THIS TIME. ETT 7.5, 22LL. ETT TO VENT, AC MODE, FIO2 30:, RATE 16, VT 500, PEEP 5. CLEAR LUNG SOUNDS NOTED TO BUL, AND DIMINISHED TO BBA. CHEST RISE SYMMETRICAL. NO S/S OF SOB NOTED AT THIS TIME. NUTREN PULM, 45 ML/HR WITH 50 ML FWF Q4H. 0 ML RESDIUAL NOTED, 5 ML FLUSH. NO S/S OF N/V NOTED AT THIS TIME. HYPOACTIVE BOWEL SOUNDS NOTED TO ALL 4 QUANDRANTS. ABODOMEN, ROUND, SOFT AND NONTENDER TO PALPATION. NO BM NOTED AT THIS TIME. SLAUGHTER DRAINING TO GRAIVITY, YELLOW URINE. NO LABIAL EDEMA OR VAGINAL DISCHARGE NOTED AT THIS TIME. VARICOSE VEINS NOTED TO BLE. SCD IN PLACE TO BLE. WEAK PERIPHERAL PULSES NOTED TO BUE AND BLE. BUE ARE WARM, AND BLE ARE COOL TO TOUCH. IV TO RIGHT ANTECUBITAL REGION AND RIGHT HAND. BOTH ARE PATENT TO FLUSH, DRESSING CDI. SOFT WRIST RESTRAINTS PLACED ON BUE TO PREVENT PT FROM SELF EXTUBATING. TRACE EDEMA NOTED TO HANDS. S1 S2 NOTED, HEART TONES REGULAR. SINUS TACH. NO SYNCOPE, DIZZINESS, OR CHEST PAIN NOTED AT THIS TIME. WILL CONTINUE TO PROVIDE CARE PER PROTOCOL.
--- NOTE | 2017-07-31 19:04 | NUR ---
REPORT GIVEN TO NOC SHIFT GARDENIA BROWN, UPDATES PROVIDED, ALL QUESTIONS ANSWERED ALL CONCERNS ADDRESSED, WILL ENDORSE CARE.
--- NOTE | 2017-07-31 23:08 | NUR ---
PT TEMP IS 100.5 F. GAVE 650 MG OF TYLENOL AND PROVIDED ICE PACKS FOR PT. WILL CONTINUE TO MONITOR PT.
[2017-08-01] VITALS (20 sets, daily range): BP systolic 82–133; BP diastolic 58–81
--- NOTE | 2017-08-01 00:32 | NUR ---
REASSESED PT, TEMP IS NOW 99.7 F. WILL CONTINUE TO MONITOR PT.
--- NOTE | 2017-08-01 00:42 | NUR ---
GAVE 0.2ML OF MORPHINE BECAUSE PT SHOWS S/S OF AGITATTION. WILL CONTINUE TO MONITOR PT.
--- NOTE | 2017-08-01 03:12 | NUR ---
PT KICKING LEGS, SHOWING SIGNS OF AGITATION. WILL ADMINISTER 0.2ML OF MORPHINE. WILL CONTINUE TO MONITOR PT.
--- NOTE | 2017-08-01 04:30 | NUR ---
PT SHOWS NO S/S OF AGITATION NOTED AT THIS TIME. WILL CONTINUE TO MONITOR PT.
[2017-08-01 05:04] LABS: BASOPHIL % 0.3 % (0-2); PLATELET COUNT 208 x10^3mcL (130-400)
[2017-08-01 05:07] LABS: CALCIUM 8.6 mg/dL (8.5-10.1); CREATININE SERUM 1.8 mg/dL (0.6-1.0); MAGNESIUM 2.6 mg/dL (1.8-2.4); PHOSPHOROUS 4.3 mg/dL (2.5-4.9); POTASSIUM SERUM 4.2 mmol/L (3.5-5.1)
[2017-08-01 05:08] LABS: RED CELL DISTRIBUTION WIDTH 16.5 % (11.5-14.5)
--- NOTE | 2017-08-01 06:11 | NUR ---
PROVIDED REPORT TO DR. CONCEPCION AT PT BEDSIDE. DR. CONCEPCION ASSESSED PT. WILL CONTINUE TO PROVIDE CARE PER PROTOCOL.
--- NOTE | 2017-08-01 07:05 | NUR ---
REPORT RECEIVED FROM [facility] SHIFT RN , UPDATES PROVIDED, ALL QUESTIONS ANSWERED ALL CONCERNS ADDRESSED. WILL ASSUME CARE AND ASSESS SHORTLY.
--- NOTE | 2017-08-01 07:09 | NUR ---
PROVIDED REPORT TO NURSE ZOHAIB. UPDATED HER ON STATUS OF PT.
--- NOTE | 2017-08-01 07:15 | NUR ---
PATIENT ASSESSED AT THIS TIME, NO DISTRESS NOTED, PATIENT IS RESTING IN BED CALMLY. PATIENT REMAINS ORALLY INTUBATED ON VENT ON AC MODE. PATIENT HAS SLAUGHTER CATHETER IN PLACE THAT IS DRAINING YELLOW URINE TO GRAVITY. SEE SHIFT ASSESSMENT FOR FURTHER DETAILS.
--- NOTE | 2017-08-01 08:28 | NUR ---
PATIENT PLACED ON CPAP AT THIS TIME 12/5, FIO2 30. WILL CONTINUE TO MONITOR.
--- NOTE | 2017-08-01 09:32 | NUR ---
PATIENT PLACED BACK ON AC MODE WITH SETTINGS: Vt 500, RATE 16, FIO2 30, PEEP 5 DUE TO PATIENT TACHYCARDIC 125 AND TACHYPNEIC AT 33. WILL CONTINUE TO MONITOR.
--- NOTE | 2017-08-01 09:32 | NUR ---
DR. RICO, RESIDENTS, MANAGER ACADEMIC AND PRIMARY RN AT BEDSIDE FOR MORNING ROUNDS. PLAN OF CARE DISUCSSED. WILL CONT TO MONITOR.
--- NOTE | 2017-08-01 11:00 | NUR ---
RADIOLOGY BEDSIDE FOR KUB AND CXR.
--- NOTE | 2017-08-01 11:28 | NUR ---
DR. GREENE MADE AWARE OF PT'S TEMP 101F THIS AM VIA AXILLARY TYLENOL 650 MG WAS ADMINISTERED. TEMP WAS REASSESSED AND NOTED AT 103F ANOTHER DOSE OF TYLENOL ADMINISTERED, SEE EMAR. DR. GREENE ALSO MADE AWARE BLOOD CULTURES WERE NEGATIVE AND NO LACTIC ACID WAS DRAWN. PER DR. GREENE TEMP IS PROBABLY FROM METH AND CONTINUE TO MONITOR AT THIS TIME. PRIMARY RN ZOHAIB AWARE OF THE FOLLOWING.
--- NOTE | 2017-08-01 11:37 | NUR ---
PATIENT TEMP 103.0 AFTER TYLENOL 650 MG ADMINISTRATION VIA OGT. COOL MEASURES INITIATED, COOLING PACKS TO GROIN AND ARMPITS, PATIENT GIVEN COOLING BLANKET AND RECTAL TEMP PROBE IN PLACE.
--- NOTE | 2017-08-01 15:48 | NUR ---
DR. WEBB BEDSIDE, UPDATES PROVIDED, ABX TO BE CHANGED AND CULTURES SENT.
--- NOTE | 2017-08-01 19:07 | NUR ---
REPORT GIVEN TO NOC SHIFT RN, UPDATES PROVIDED, ALL QUESTIONS ANSWERED ALL CONCERNS ADDRESSED.
--- NOTE | 2017-08-01 19:07 | NUR ---
RECEIVED PT REPORT FROM GARDENIA PENNY. QUESTIONS AND CONCERNS ADDRESSED.
--- NOTE | 2017-08-01 19:10 | NUR ---
RECEIVED PT LAYING IN BED, HOB AT 30 DEGREES. SEDATED ON VERSED AT 2 MG/HR, DOES NOT FOLLOW COMMANDS, UNABLE TO MAKE NEEDS KNOWN, MRSS OF 4. R PUPIL FIXED AT [address] AND SECURED, LL 22, TUBE SIZE 7.5, OGT IN PLACE AND SECURED INFUSING NUTREN PULMONARY AT 45 ML/HR WITH 50 ML FWF Q4H. NSR NOTED TO METAL DRILL PRESS OPERATOR, NS INFUSING AT 60 ML/HR. ETT TO VENT SETTINGS, AC MODE, RATE 16, VT 500, PEEP 5, FIO2 45%. EVEN AND UNLABORED BREATHING, SYMMETRICAL CHEST EXPANSION. SCD'S IN PLACE. F/C DRAINING TO GRAVITY, YELLOW COLORED URINE NOTED. SOFT WRIST RESTRAINTS IN PLACE TO BILATERAL WRISTS FOR PT SAFETY. WILL MONITOR PT CLOSELY.
--- NOTE | 2017-08-01 21:50 | NUR ---
VERSED TITRATED TO 3 MG/HR, PT AGITATED BREATHING OVER VENT, HR AT 101, ATTEMPTING TO GET OUT OF THE BED AND REACH FOR ETT. MRSS OF 4, WILL MONITOR PT CLOSELY.
[2017-08-02] VITALS (17 sets, daily range): BP systolic 85–128; BP diastolic 48–119
--- NOTE | 2017-08-02 05:00 | NUR ---
DR. GREENE AT BEDSIDE TO ASSESS THE PT. QUESTIONS AND CONCERNS ADDRESSED.
--- NOTE | 2017-08-02 05:08 | NUR ---
NEEDLE VALVE OPERATOR AT BEDSIDE FOR MORNING BLOOD DRAW.
[2017-08-02 05:26] LABS: BASOPHIL % 0.6 % (0-2); PLATELET COUNT 135 x10^3mcL (130-400)
[2017-08-02 05:29] LABS: RED CELL DISTRIBUTION WIDTH 16.5 % (11.5-14.5)
--- NOTE | 2017-08-02 05:29 | NUR ---
DR. GREENE AT BEDSIDE. QUESTIONS AND CONCERNS ADDRESSED.
[2017-08-02 05:44] LABS: CALCIUM 8.5 mg/dL (8.5-10.1); CARBON DIOXIDE 32.6 mmol/L (21-32); CREATININE SERUM 1.5 mg/dL (0.6-1.0); MAGNESIUM 2.4 mg/dL (1.8-2.4); PHOSPHOROUS 3.5 mg/dL (2.5-4.9); POTASSIUM SERUM 3.6 mmol/L (3.5-5.1)
--- NOTE | 2017-08-02 07:00 | NUR ---
RECEIVED REPORT FROM [facility] SHIFT GARDENIA GONZALEZ, ALL QUESTIONS AND CONCERNS ADDRESSED AT THIS TIME. WILL ASSUME ALL CARE.
--- NOTE | 2017-08-02 07:30 | NUR ---
RECEIVED PT INTUBATED WITH 7.5 ETT, 22 LL, AC MODE, PEEP 5, FI02 30%, RATE 16, VT 500. BUL CLEAR, BLL DIM, SCANT THICK POTTS SECRETIONS REMOVED BY SUCTION. PT SEDATED ON 3 MG/HR VERSED, RSS 4, PT DOES NOT FOLLOW COMMANDS, R PUPIL FIXED 4 MM, L PUPIL 2 MM BRISK. PT HAS OGT IN PLACE RECEIVING NUTREN PULM 45 ML/HR WITH A FWF OF 50 Q4H, NO RESIDUALS NOTED. PT HAS SLAUGHTER CATH IN PLACE DRAINING TO GRAVITY LIGHT NURA URINE, NO SEDIMENT OR BLOOD NOTED. PT HAS DRY SCABS ON FACE. PT IS REPOSITIONED Q2H TO PREVENT SKIN BREAKDOWN. PT ON CABLE TECHNICIAN, SINUS TACH WITH OCCASIONAL PVC'S NOTED. WILL CONTINUE TO MONITOR PT.
--- NOTE | 2017-08-02 08:00 | NUR ---
PT RECTAL TEMP 100.8, WILL GIVE PRN TYLENOL, COVERS REMOVED. WILL REASSESS.
--- NOTE | 2017-08-02 08:09 | NUR ---
AT BEDSIDE. SEDATION TURNED OFF AT THIS TIME FOR CPAP TRIALS. WILL CONTINUE TO MONITOR PT.
--- NOTE | 2017-08-02 08:35 | NUR ---
SUREKHA RT AT BEDSIDE TO PLACE PT ON CPAP 09/07. WILL CONTINUE TO MONITOR PT AT THIS TIME.
--- NOTE | 2017-08-02 09:15 | NUR ---
PT HR 133, PT PLACED BACK ON VERSED AT 4 MG/HR. WILL CONTINUE TO MONITOR PT AT THIS TIME.
--- NOTE | 2017-08-02 10:15 | NUR ---
PT LOOSE BM X 2. PT CLEANSED AND PROVIDED NEW LINEN.
--- NOTE | 2017-08-02 11:31 | NUR ---
PT PATI CALLED AT THIS TIME, UPDATES PROVIDED. WILL CONTINUE TO MONITOR PT AT THIS TIME.
--- NOTE | 2017-08-02 14:05 | NUR ---
Follow-up Nutrition Assessment Dx:Intubated, metabolic encephalopathy Labs: 08/02: Na:151H, BH, BUN:46H, Cr:1.5H, WBC:13.2H, Hct:46H Meds: Aldactone, Ativan, Humulin, Lactinex, Lasix, Pepcid, NS IV, Versed, Zofran, Heparin Current Nutrition Support:Nutren Pulmonary at 45ml/hr. Free water flush:50ml q4hr. TF intake:08/01:913ml, 08/02:1007ml I/O:08/01:2783/3650 (-867ml) , 08/02:3048/3650 (-602ml) Residuals:08/02:0ml Weights: 07/30:212#, 08/02:190# weight questionable. Skin: intact Edema: trace to BUE Last BM: 08/02 Per progress note 08/02, patient still intubated, sedated. Will withdraw from painful stimuli. She has not tolerated CPAP trials, becomes tachypneic and febrile, will attempt again today. During visit, observed pt intubated and sedated on Versed with TF on hold. Per RN, pt TF held due to CPAP trials.Pt also with multiple loose stools possibly secondary to antibitoics per RN. Pt tolerating TF with 0ml resdiuals. Estimated Nutritional Needs unchanged from prior assessment:Adjusted BW:60kg Energy: 1712kcal/day (PSU 2003b for vent support) Protein: 72-90g/day (1.2-1.5g/day for vent support) Fluid: 1200ml/day (20ml/kg for CHF) or per doctor Nutrition Diagnosis 1. Inadequate enteral nutrtition support related to low TF rate as evidenced by pt only meeting 63% caloric needs and 68% protein needs (met TF increased to goal rate) Intervention 1. If unable to extubated, recommend continue with TF of Nutren Pulmoanry at 60ml/hr, free water flush 50ml q4hr via OGT. This provides 1620 kcal (meets 95% caloric needs) and 73g pro (meets 100% protein needs) and 1145ml free water daily. 2. If able to extubate, recommend bed side swallow evaluation or swallow evaluation per Speech Therapist. 3. If able to extubate, consider cardiac diet and textures per Speech Therapist. Monitor/Evaluate Previous goal:TF to meet 80% est needs with tolerance (met) Goal: TF to meet 80% est needs with tolerance, pt extubated with advancement of diet Monitor: TF intake/tolerance, diet advancement, Labs(BUN, Cr, Na), GI function F/U in 3-5 days as moderate risk:08/05-4
--- NOTE | 2017-08-02 17:00 | NUR ---
SUREKHA RT AT BEDSIDE TO PLACE PT BACK ON AC MODE. PEEP 5, FI02 30%, RATE 16, VT 500. TUBE FEEDING REINITIATED AT THIS TIME, NUTREN PULM 45 ML/HR WITH A FWF OF 50 Q4H. WILL CONTINUE TO MONITOR PT.
--- NOTE | 2017-08-02 17:12 | NUR ---
PT HAD LOOSE BROWN BM. PT CLEANSED AND PROVIDED NEW LINEN. SLAUGHTER CARE PROVIDED PER PROTOCOL.
--- NOTE | 2017-08-02 19:30 | NUR ---
REPORT RECEIVED FROM BALJIT VARNER. ALL QUESTIONS AND CONCERNS ADDRESSED.
--- NOTE | 2017-08-02 21:23 | NUR ---
VERSED TITRATED TO 4 MG/HR. PT VERY RESTLESS AND KICKING HER LEGS. WILL CONTINUE TO MONITOR.
--- NOTE | 2017-08-02 21:26 | NUR ---
TUBE FEEDING TURNED OFF FOR UPCOMING ULTRASOUND.
[2017-08-03] VITALS (18 sets, daily range): BP systolic 87–115; BP diastolic 55–86
--- NOTE | 2017-08-03 | NUR ---
VERSED TITRATED 5 MG/HR. PT RESTLESS AND KICKING LEGS. WILL CONTINUE TO MONITOR.
--- NOTE | 2017-08-03 01:39 | NUR ---
REYES HERNÁNDEZ AT BEDSIDE. WILL CONTINUE TO MONITOR.
--- NOTE | 2017-08-03 01:50 | NUR ---
PT HAD MODERATE BROWN LOOSE STOOL. PT CLEANED AND REPOSTIONED AT THIS TIME.
--- NOTE | 2017-08-03 03:10 | NUR ---
PT HAD MODERATE BROWN LOOSE BOWEL MOVEMENT. PT CLEANED/BATHED/LINEN CHANGED. PT PULLED OUT IV X2 TO R FA. IV X2 PLACED TO L FA, BOTH 20 G GOOD BACK FLOW AND FLUSHED WELL. WILL CONTINUE TO MONITOR.
[2017-08-03 05:26] LABS: BASOPHIL % 0.1 % (0-2)
[2017-08-03 05:29] LABS: PLATELET COUNT 103 x10^3mcL (130-400); RED CELL DISTRIBUTION WIDTH 16.6 % (11.5-14.5)
[2017-08-03 05:40] LABS: CALCIUM 8.4 mg/dL (8.5-10.1); CARBON DIOXIDE 33.6 mmol/L (21-32); CREATININE SERUM 1.2 mg/dL (0.6-1.0); MAGNESIUM 2.4 mg/dL (1.8-2.4); PHOSPHOROUS 3.1 mg/dL (2.5-4.9); POTASSIUM SERUM 3.4 mmol/L (3.5-5.1)
--- NOTE | 2017-08-03 07:25 | NUR ---
REPORT GIVEN TO MAURILIO VARNRE TO ASSUME CARE.
--- NOTE | 2017-08-03 07:30 | NUR ---
RECEIVED PT INTUBATED AND SEDATED ON VERSED @ 5 MG/HR TO MRSS = 4. PT HAS SIZE 7.5 ETT INTACT AND SECURED, 22 @ LL. OGT INTACT AND SECURED, CLAMPED AT THIS TIME. ETT TO VENT, VCV: RATE 16, TV 500, PEEP 5, FIO2 30%. PT IS BREATHING EVEN AND UNLABORED. LUNG SOUNDS ARE FINE CRACKLES TO BUL, DIMINISHED TO BASES. S1 S2 HEART SOUNDS AUSCULTATED. NSR, HR = 70. PULSES ARE MODERATE X4. CAP REFILL < 3 S. SKIN IS WARM AND POTTS. TRACE EDEMA TO BUE. ABD IS SOFT AND ROUNDED. BOWEL SOUNDS ACTIVE X4Q. SLAUGHTER INTACT AND DRAINING VIA GRAVITY. URINE IS DARK YELLOW, FAIR OUTPUT. L FA IV X2 INTACT AND PATENT, DRESSINGS CDI. 1/2NS INFUSING @ 60 CC/HR. NO S/SX OF PAIN AT THIS TIME. HOB ELEVATED, BED LOW, SIDE RAILS UP X3, CALL LIGHT IN REACH. PT IN BILATERAL SOFT WRIST RESTRAINTS. WILL CONTINUE TO MONITOR.
--- NOTE | 2017-08-03 07:30 | NUR ---
VERSED TITRATED OFF AT THIS TIME FOR CPAP.
--- NOTE | 2017-08-03 08:00 | NUR ---
PT PUT ON CPAP AT THIS TIME BY REYES RT: PEEP 5, PSV 12, FIO2 30%.
--- NOTE | 2017-08-03 08:30 | NUR ---
DR RAMSEY AT BEDSIDE TO ASSESS PT. UPDATED ON PT STATUS, QUESTIONS ANSWERED.
--- NOTE | 2017-08-03 08:30 | NUR ---
PT PUT BACK ON VCV: RATE 16, TV 500, PEEP 5, FIO2 30%.
--- NOTE | 2017-08-03 10:03 | NUR ---
PATIENT RESTLESS WITH RR IN 30'S. SEDATION OF VERSED REINITATED AT THIS TIME TO ACHIEVE MRSS 4.
--- NOTE | 2017-08-03 11:23 | NUR ---
FIO2 TITRATED TO 35% BY LANE JACQUES
--- NOTE | 2017-08-03 13:35 | NUR ---
DR SEYMOUR MEETING WITH PT'S , PATI. PER PATI, PT HAS 2 ADULT CHILDREN FROM PRIOR TO THEIR MARRIAGE. PT AND PATI HAS TWO NON-ADULT CHILDREN. 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 DELICIA SEYMOUR DISCUSSED PT'S CURRENT STATUS, PROGNOSIS, AND OPTIONS REGARDING PLAN OF CARE. PATI TO DISCUSS WITH THE CHILDREN ABOUT PURSUING OVEREDGE SEWER CARE OR PALLIATIVE CARE AND PLANS TO HAVE A DECISION WITHIN 24 HOURS. QUESTIONS AND CONCERNS ADDRESSED.
--- NOTE | 2017-08-03 19:25 | NUR ---
RECEIVED REPORT FROM GARDENIA THORPE, ALL QUESTIONS AND CONCERNS ADDRESSED AT THIS TIME. WILL ASSUME CARE. PT IS IN ICU BED 9 IN LOW FOWLERS RESTING. PT IS INTUBATED AND SEDATED ON VERSED, RSS 4. EYES OPEN TO VERBAL STIMULI, AND PUPILS REACT SLUGGISH TO LIGHT 2MM. CHEST RISE AND FALL EQUAL AND UNLABROED. PT IS ON VENT, AC MODE. PT IS ON BLACK PULLER AND VS STABLE. WILL CONTINUE TO MONITOR.
--- NOTE | 2017-08-03 20:57 | NUR ---
RT DOMINGUEZ AT BEDSIDE FOR BREATING TREATMENT.
--- NOTE | 2017-08-03 20:57 | NUR ---
VERSED TITRATED UP FROM 5MG TO 6MG/HR, RSS 3.
[2017-08-04] VITALS (18 sets, daily range): BP systolic 93–106; BP diastolic 59–74
--- NOTE | 2017-08-04 02:49 | NUR ---
PT RESTING IN BED AT THIS TIME. NO SIGNS OF ACUTE DISTRESS. VS STABLE.
--- NOTE | 2017-08-04 04:57 | NUR ---
DR COLON AT BEDSIDE. ALL QUESTIONS AND CONCERNS ADDRESSED.
[2017-08-04 05:36] LABS: BASOPHIL % 0.4 % (0-2); PLATELET COUNT 220 x10^3mcL (130-400); RED CELL DISTRIBUTION WIDTH 13.3 % (11.5-14.5)
[2017-08-04 05:46] LABS: CALCIUM 7.2 mg/dL (8.5-10.1); CARBON DIOXIDE 26.8 mmol/L (21-32); CHLORIDE SERUM 107 mmol/L (98-107); CREATININE SERUM 0.9 mg/dL (0.6-1.0); GFR1 > 60 mL/min; GLUCOSE SERUM 126 mg/dL (74-106); MAGNESIUM 1.8 mg/dL (1.8-2.4); PHOSPHOROUS 2.2 mg/dL (2.5-4.9); POTASSIUM SERUM 3.4 mmol/L (3.5-5.1); SODIUM SERUM 139 mmol/L (136-145)
--- NOTE | 2017-08-04 07:00 | NUR ---
REPORT RECEIVED FROM [facility] SHIFT RN FABIANO. UPDATES PROVIDED, ALL QUESTIONS ANSWERED ALL CONCERNS ADDRESSED. WILL ASSUME CARE AND ASSESS PATIENT SHORTLY.
--- NOTE | 2017-08-04 07:15 | NUR ---
PATIENT IS RESTING IN BED CALMLY, PATIENT REMAINS SEDATED ON VERSED AT 6 MG/HR AND IS ORALLY INTUBATED. PATIENT IS ON AC MODE Vt 500, RATE 16, PEEP 5, FIO2 30%. PATIENT HAS OGT IN PLACE NUTREN PULM INFUSING AT 45 ML/HR WITH 100 ML FWF Q 4 HOURS. SEE SHIFT ASSESSMENT FOR FURTHER DETAILS.
--- NOTE | 2017-08-04 08:23 | NUR ---
VERSED DECREASED TO 2 MG/HR AT THIS TIME IN ATTEMPT TO LOWER SEDATION FOR CPAP TRIALS.
--- NOTE | 2017-08-04 08:30 | NUR ---
RT BARBARA VILLA.
--- NOTE | 2017-08-04 08:35 | NUR ---
PATIENT PLACED ON CPAP 12/5, FIO2 30%.
--- NOTE | 2017-08-04 08:35 | NUR ---
PT WAS PLACED ON CPAP [address] WEBB STANDING ORDER, GARDENIA PENNY AWARE OF VENT SETTINGS CHANGES, NO RESP DISTRESS NOTED DURING THIS TIME, WILL CONTINUE TO MONITOR.
--- NOTE | 2017-08-04 09:37 | NUR ---
DR. ACEVES ROUNDING WITH RESIDENTS AT THIS TIME, UPDATES PROVIDED, K-RIDER TO BE ORDERED.
--- NOTE | 2017-08-04 09:59 | NUR ---
RT BEDSIDE FOR ABG.
--- NOTE | 2017-08-04 10:00 | NUR ---
VERSED TITRATED DOWN TO 1 MG/HR
--- NOTE | 2017-08-04 11:00 | NUR ---
SEDATION OFF AT THIS TIME.
--- NOTE | 2017-08-04 12:59 | NUR ---
SEDATION RESTARTED AT 2 MG/HR. VERSED.
--- NOTE | 2017-08-04 12:59 | NUR ---
PATIENT TAKEN OFF OF CPAP AT THIS TIME BY RT JIMENEZ. PATIENT HR 120'S AND RR 40'S.
--- NOTE | 2017-08-04 13:00 | NUR ---
PT NOTED TO BECOMING TACHYPNEIC AND WAS PLACED BACK ON ASSIST CONTROL VOLUME CONTROL WITH PREVIOUS CHARTED VENT SETTINGS, RN ZOHAIB AWARE AND INITATING SEDATION, WILL CONTINUE TO MONITOR.
--- NOTE | 2017-08-04 15:15 | NUR ---
VERSED INFUSION DECREASED TO 0.5MG/HR
--- NOTE | 2017-08-04 18:00 | NUR ---
DR. RAMSEY IN TO SEE PT. DISCUSSED PLAN OF CARE.
--- NOTE | 2017-08-04 19:00 | NUR ---
RECEIVED PT REPORT FROM TOVA VARNER, AND ZOHAIB VARNER. QUESTIONS AND CONCERNS ADDRESSED.
--- NOTE | 2017-08-04 19:05 | NUR ---
RECEIVED PT LAYING IN BED, HOB AT 30 DEGREES, SEDATED ON VERSED AT 0.5 MG/HR, MRSS OF 4. DOES NOT FOLLOW COMMANDS, UNABLE TO MAKE NEEDS KNOWN, LOCALIZES TO PAIN, OPENS EYES TO VERBAL/PAINFUL STIMULUS. R PUPIL FIXED AT 2 MM, L PUPIL SLUGGISH AT 2 MM TO LIGHT. ETT IN PLACE, TUBE SIZE 7.5, LL 22, TO VENT SETTINGS, AC MODE, RATE 16, VT 500, PEEP 5, FIO2 30%. NSR NOTED TO BAG WORKER, NO S/S OF CHEST PAIN. TRACE EDEMA TO BLE, SCD'S IN PLACE. ABDOMEN SOFT/ROUND/OBESE, NO BM NOTED, F/C IN PLACE DRAINING TO GRAVITY, YELLOW COLORED URINE NOTED. SOFT WRIST RESTRAITNS IN PLACE TO BUE FOR PT SAFETY, NO CONTRACTURES OR DEFORMITIES NOTED, SCABS NOTED TO FACE, IV IN PLACE TO L WRIST AND LFA INFUSING 1/2 NS AT 60 ML/HR. OGT IN PLACE INFUSING NUTREN PULMONARY AT 45 ML/HR FWF 100 ML Q4H. WILL MONITOR PT CLOSELY.
--- NOTE | 2017-08-04 20:19 | NUR ---
PT AGITATED, BREATHING OVER VENT SETTINGS, ATTEMPTING TO GET OUT OF BED/ATTEMPTS TO PULL AT LINES/TUBES. VERSED TITRATED TO 2 MG/HR. MRSS OF 4. WILL MONITOR CLOSELY.
[2017-08-05] VITALS (19 sets, daily range): BP systolic 88–167; BP diastolic 57–73
--- NOTE | 2017-08-05 01:53 | NUR ---
PT RESTING AT THIS TIME, NO S/S OF DISTRESS NOTED.
--- NOTE | 2017-08-05 05:01 | NUR ---
DR. PIERCE AT BEDSIDE, QUESTIONS AND CONCERNS ADDRESSED BEDSIDE.
--- NOTE | 2017-08-05 05:06 | NUR ---
ALLIANCE MANAGER AT BEDSIDE FOR MORNING BLOOD DRAW.
[2017-08-05 05:20] LABS: PLATELET COUNT 154 x10^3mcL (130-400)
[2017-08-05 05:22] LABS: BASOPHIL % 0 % (0-2); RED CELL DISTRIBUTION WIDTH 16.8 % (11.5-14.5)
[2017-08-05 05:33] LABS: CALCIUM 8.5 mg/dL (8.5-10.1); CARBON DIOXIDE 29.2 mmol/L (21-32); CREATININE SERUM 1.2 mg/dL (0.6-1.0); MAGNESIUM 2.3 mg/dL (1.8-2.4); PHOSPHOROUS 3.9 mg/dL (2.5-4.9); POTASSIUM SERUM 4.8 mmol/L (3.5-5.1)
--- NOTE | 2017-08-05 06:46 | NUR ---
VERSED TITRATED TO 1.5 MG, MRSS OF 4 NOTED.
--- NOTE | 2017-08-05 07:05 | NUR ---
PT REPORT GIVEN TO GARDENIA KAUR. QUESTIONS AND CONCERNS ADDRESSED.
--- NOTE | 2017-08-05 08:08 | NUR ---
PT IS SEDATED ON VERSED 1.5 MG/HR RSS 5 WILL TIATRAET TO RSS 4. PT WITHDRAWLS FROM PAINFUL STIMULIS. PT IS NOT ABLE TO FOLLOW VERBAL COMMMANDS OR MAKE NEEDS KNOWN. RT PUPIL 3MM, FIXED, LT PUPIL 3MM, SUGGISH. 7.5 ETT TO VENT, OGT SECURE AND AIR AUSCULATED TO CONFIRM PLACEMENT. PT ON AC MODE 30%FIO2, LPM 22, RATE 16, VT 500, PEEP 5. VAP CARE PROVIDED. DIMINISH LUNG SOUNDS TO BL UPPER LOBES AND COARSE CRACKLE TO BL BASES OF LUNGS. SCANT WHITE OUTPUT FROM INLINE SUCITION. BS HYPOACTIVE X4 QAUDRANTS. NONTENDER PALPATION TO ABD. NO SIGNS OF BM. WEAK PALPABLE PULSES TO BUE AND BLE. EDEMA TO BUE. SOFT RESTRAINTS TO BL WRISTS. PT HAS FULL ACTIVE ROM TO BUE. PT ATTEMTPINT TO PULL ETT TUBE, RESTRAINTS IS TO PROTECT AIRWAY. PT ON NUTREN PULM 45ML/HR WITH FWF 100ML/Q4HRS, NO RESIDUALS IN STOMACH. PT RECIEVES HEAPRIN SQ Q12HRS. BED AT LOW AND CALL LIGHT WITHIN REACH.
--- NOTE | 2017-08-05 08:13 | NUR ---
BARBARA RT AT BEDSIDE FOR BREATHING TX.
--- NOTE | 2017-08-05 08:22 | NUR ---
PER DR. RAMSEY TO TURN OFF VERSED AND NUTREN PULM. DR. GARCIA IN ROOM ASSESSING PT AND UPDATE PLAN OF CARE.
--- NOTE | 2017-08-05 09:21 | NUR ---
SPOKE WITH DR RAMSEY VIA TELEPHONE AND REPORTED PATIENT PROGRESS ON CPAP. NEW ORDER RECEIVED. WILL CARRY OUT ORDER. WILL CONTINUE TO MONITOR.
--- NOTE | 2017-08-05 09:25 | NUR ---
PT PLACED ON CPAP [address] BRAULIO ZAIDI, RN MIN AWARE, WEANING PARAMETERS TO FOLLOW, WILL CONTINUE TO MONITOR.
--- NOTE | 2017-08-05 09:54 | NUR ---
DR. ACEVES AT NURSING STATION TO UPDATE PLAN OF CARE.
--- NOTE | 2017-08-05 11:31 | NUR ---
PT OPENS EYES SPONTANEOUSLY AND IS ABLE TO FOLLOW VERBAL COMMANDS. PT ON CPAP 30% FIO2, LPM 22, VT 500, PEEP 5, PSV 12. DIMINISH LUNG SOUNDS TO BL LUNG OGLESBY. VAP CARE PROVIDED. NO OUTPUT FROM IN LINE SUCTION. NUTREN PUL REMAINS ON HOLD. NONTENDER PALPATION TO ABD. NO SIGNS OF BED. 2000ML OF CLEAR YELLOW URINE WAS EMPTIED FROM SLAUGHTER. SOFT RESTRAINTS TO BL WRISTS. PT HAS FULL ACTIVE ROM TO BL WRISTS. DAUGHTER AT BEDSIDE. BED AT LOW AND CALL LIGHT WITHIN REACH.
--- NOTE | 2017-08-05 11:36 | NUR ---
PATIENT CONTINUES ON CPAP. DAUGHTER AT BEDSIDE. PER MD ORDER, VERSED DISCONTINUED AND PATIENT STARTED ON PRECEDEX 0.2 MCG/KG/HR TO ACHIEVE MRSS 4. WILL MONITOR PATIENT CLOSELY.
--- NOTE | 2017-08-05 11:53 | NUR ---
PATIENT'S ELDEST DAUGHTER FARIDA LAMAS PROVIDED TELEPHONE # IN WHICH SHE MAY BE CONTACTED AT: [phone] OR HER FIANCE' PHONE [phone]. NOTE TAPED IN CHART AND DR RAMSEY MADE AWARE.
--- NOTE | 2017-08-05 16:18 | NUR ---
PT RECIEVING BREATHING TX NO S/S OF DISTRESS. NO ACUTE CHANGE PT IS RESTING IN BED.
--- NOTE | 2017-08-05 17:08 | NUR ---
DR. GARCIA IN ROOM ASSESSING PT AND UPDATING PLAN OF CARE. PER DR. RAMSEY TO REDUCE PRECEDEX TO 0.1MCG/KG/HR AND TO D/C MORPHINE IVP.
--- NOTE | 2017-08-05 17:10 | NUR ---
PT PLACED BACK ON ASSIST CONTROL VOLUME CONTROL MODE OF VENTILATION PER DR. RAMSEY VERBAL ORDER, RN MIN AWARE, WILL CONTINUE TO MONITOR.
--- NOTE | 2017-08-05 19:30 | NUR ---
RECEIVED PATIENT INTUBATED AND SEDATED ON PRECEDEX @ 0.1MCG/KG/MIN. PATIENT OPENS EYES TO TACTILE STIMULATION (GENTLE STERNAL RUB). PT LOCALIZES TO PAIN (GENTLE STERNAL RUB). PT NONVERBAL DUE TO ETT, UNABLE TO MAKE NEEDS KNOWN. LT PUPIL 2MM, BRISK REACTION TO LIGHT. RT PUPIL 3MM, SLUGGISH REACTION TO LIGHT. TRACHEA MIDLINE. NO SCLERAL EDEMA NOTED. ETT #7.[address] AND SECURED. OGT IN PLACE/SECURED. ORAL CARE PROVIDED PER VAP PROTOCOL. PATIENT BREATHING EVEN AND UNLABORED VIA VENT WITH SETTINGS AC MODE FIO2 30% RATE 16 VT 500 PEEP 5. LUNG SOUNDS CTA BILAT. CHEST RISES SYMMETRICALLY. S1, S2 AUSCULTATED. CHEST WALL STABLE. NO S/S OF CP AT THIS TIME. SKIN IS DRY, WTT, INTACT. SBACS/ABRASIONS ZEINA NOTED ON FACE. PERIPHERAL PULSES ARE WEAK TO BUE AND BLE. CAP REFILL <3 SECONDS. NON PITTING EDEMA NOTED TO BUE. GENERALIZED WEAKNESS. SOFT WRIST RESTRAINTS IN PLACE TO BUE FOR PT SAFETY, REPOSITIONED Q2H PER PROTOCOL, NO CONTRACTURES OR DEFORMITIES NOTED. PT RECEIVING NUTREN PULMONARY AT 45 ML/HR FWF 100ML Q4H. NO N/V/D NOTED. NO RESIDUALS NOTED. PATIENT ABDOMEN SOFT, OBESE, AND NONTENDER TO PALPATION PER FLACC SCALE. ACTIVE BOWEL SOUNDS X 4Q. NO BM NOTED AT THIS TIME. SLAUGHTER CATHETER IN PLACE AND SECURED DRAINING YELLOW URINE TO GRAVITY DRAINAGE BAG. NO VAGINAL DISCHARGE/LABIAL EDEMA NOTED. IV ACCESS NOTED TO LEFT MEDIAL WRIST/FA. 1/2 NS INFUSING @ 60ML/HR. NO S/S OF PAIN NOTED AT THIS TIME PER FLACC SCALE. BED IN LOWEST POSITION, HOB ELEVATED, SIDE RAILS X 3, CALL LIGHT WITHIN REACH, WILL CONTINUE TO MONITOR.
--- NOTE | 2017-08-05 23:25 | NUR ---
PT GRIMACING, HR 100S, PRECEDEX TITRATED TO 0.2 MCG/KG/MIN. WILL CONTINUE TO MONITOR.
[2017-08-06] VITALS (11 sets, daily range): BP systolic 91–152; BP diastolic 52–78; Ht 157.5 cm; Wt 84.8 kg
[2017-08-06 05:35] LABS: BASOPHIL % 0.5 % (0-2); PLATELET COUNT 201 x10^3mcL (130-400); RED CELL DISTRIBUTION WIDTH 16.4 % (11.5-14.5)
--- NOTE | 2017-08-06 05:45 | NUR ---
DR HARRISON AND DR CONCEPCION AT BEDSIDE FOR ASSESSMENT, ALL QUESTIONS AND CONCERNS ADDRESSED, NEW ORDERS RECEIVED.
[2017-08-06 05:47] LABS: CALCIUM 8.7 mg/dL (8.5-10.1); CARBON DIOXIDE 27.6 mmol/L (21-32); CREATININE SERUM 1.3 mg/dL (0.6-1.0); MAGNESIUM 2.5 mg/dL (1.8-2.4); PHOSPHOROUS 4.1 mg/dL (2.5-4.9); POTASSIUM SERUM 4.8 mmol/L (3.5-5.1)
--- NOTE | 2017-08-06 06:30 | NUR ---
PRECEDEX TITRATED TO 0.1 MCG/KG/MIN. VITAL SIGNS STABLE. WILL CONTINUE TO MONITOR.
--- NOTE | 2017-08-06 07:00 | NUR ---
RECEIVED REPORT FROM NOC SHIFT RN BK, ALL QUESTIONS AND CONCERNS ADDRESSED AT THIS TIME. WILL ASSUME ALL CARE.
--- NOTE | 2017-08-06 07:10 | NUR ---
REPORT GIVEN TO BALJIT VARNER, ALL QUESTIONS AND CONCERNS ADDRESSES, ALL CARE ENDORSED.
--- NOTE | 2017-08-06 07:45 | NUR ---
RECEIVED PT INTUBATED WITH 7.5 ETT, 22 LL, ON AC MODE, PEEP 5, FI02 30%, RATE 16, VT 500, BUL CLEAR, BLL DIM. PT IS SEDATED ON 0.1 PRECEDEX, RSS 3 PT IS ABLE TO FOLLOW COMMANDS AND ANSWER YES AND NO QUESTIONS. PT HAS OGT IN PLACE WITH NUTREN PULM 45 ML/HR WITH A FWF OF 100 Q4H RECEIVING, TURNED OFF AT THIS TIME IN PREP FOR CPAP TRIALS. PT HAS TRACE EDEMA NOTED TO BILATERAL HANDS. PT HAS SCDS IN PLACE. PT HAS SLAUGHTER CATH IN PLACE DRAINING TO GRAVITY YELLOW URINE. PT IS NSR ON RODENT CONTROL WORKER. PT WITHIN CLOSE VIEW OF NURSES STATION. WILL CONTINUE TO MONITOR PT AT THIS TIME.
--- NOTE | 2017-08-06 08:18 | NUR ---
DR. RAMSEY AT BED SIDE, PT PLACED ON CPAP 5 PSV 12 PER ORDER, RN BALJIT AWARE, WEANING PARAMETERS TO FOLLOW.
--- NOTE | 2017-08-06 08:36 | NUR ---
PATIENT ROUNDS WITH DR. GRIMALDO AND RESIDENTS. CHARGE NURSE AND PRIMARY NURSE AT BEDSIDE. UPDATES PROVIDED. POC DISCUSSED. WILL CONTINUE TO MONITOR.
--- NOTE | 2017-08-06 10:50 | NUR ---
NOTIFIED OF WEANING PARAMETERS PER BARBARA RT, PER EXTUBATE PT. PT EXTUBATED AT 1039, RESTRAINTS REMOVED AT 1040, 3L NC IN PLACE. WILL CONTINUE TO MONITOR PT.
--- NOTE | 2017-08-06 14:45 | NUR ---
Follow-up Nutrition Assessment Dx:Intubated, metabolic encephalopathy, HTN Labs: (08/06) B, BUN:31H, Cr:1.3H, WBC:11.5H, Hct:50H Meds: Aldactone, Lactinex, Lasix, Pepcid, Precedex, NS IV, Zofran, Heparin, Current Nutrition Support: TF Nutren Pulmonary at 45ml/hr via NGT. FWF: 100ml q4hr TF intake: 08/05: 517ml (776kcal, 35g pro) , 08/06: 1121ml(1681kcal, 76g pro) I/O: 08/05: 1752/3250 (-1798ml), 08/06:4168/3750 (+418ml) Residuals: 08/06:0ml, 08/05:0ml Weights: 08/02:190#, 08/03:182#,08/04:193#, 08/05:189#, 08/06:187# wt decrease possibly due to fluid shifts. Pt on Lasix Skin: dry scabs to face, BUE, BLE and buttocks area. Edema: trace to BL hands Last BM: 08/04 Per progress note 08/06, Patient versed has been discontinued, Patient started on Precedex Drip 0.1mcg/kg/khr Blood pressure 140/70, MS 83, Vent settings - Vent mode at FiO2 30 Patient still intubated and on ventilation - per Dr. Mayorga - extubation tomorrow. During visit, observed pt sleeping. Per RN, pt was extubated at 10:39 this morning and is pending a swallow evaluation. Pt with no N/V/D/C. Estimated Nutritional Needs unchanged from prior assessment:Adjusted body weight 60kg Energy: 1500-1800kcal/day (25-30kcal/kg for maintenance) Protein: 48-60g/day (0.8-1.0g/kg for maintenance) Fluid: 1200ml/day (20ml/kg for CHF) or per doctor Nutrition Diagnosis 1. Inadequate enteral nutrition support related to low TF rate as evidenced by pt only meeting 63% caloric needs and 68% protein needs (met TF increased to goal rate) 2. Inadequate protein/energy intake realted to s/p extubation as evidencec by pt currently NPO pending swallow evaluation. Intervention 1. Recommend cardiac diet with textures per ST recommendations. Monitor/Evaluate Previous goal: TF to meet 80% est needs with tolerance (met) Goal: PO intake at least 75% of estimated needs Monitor: PO intake, Labs, GI function F/U in 3-5 days as moderate risk:08/09-
--- NOTE | 2017-08-06 14:48 | NUR ---
1. Recommend cardiac diet with textures per ST recommendations.
--- NOTE | 2017-08-06 17:30 | NUR ---
BLOOD GLUCOSE 55, D50 PROVIDED, REPEAT GLUCOSE LEVEL 118. AWARE AND CHANGE IVF TO D51/2 NS 60.
--- NOTE | 2017-08-06 19:00 | NUR ---
RECEIVED REPORT FROM NURSE SMILEY. PT IS EXTUBATED AND SWALLOW TEST HAS BEEN ORDERED BUT HAS NOT BEEN PERFORMED. PT HAS NO SCLERAL EDEMA. RIGHT EYE 4MM, FIXED, LEFT EYE 2MM BRISK. PT IS ALERT AND ORIENTED X4. SPEECH IS SLOW AND SLIGHTLY SLURRED. PT CAN FOLLOW COMMANDS. PT CAN REPOSITON THEMSELF. PT OPENS EYES SPONTANEOUSLY. NASAL CANNULA 3 LITERS TO NARES. TRACHEA MIDLINE, NO EENT DRAINAGE NOTED AT THIS TIME. ORAL [place] PINK AND MOIST. CLEAR LUNG SOUNDS NOTED TO BUL, DIMNISHED TO BBA. ACTIVE BOWEL SOUNDS NOTED TO ALL 4 QUADRANTS. NO BM NOTED AT THIS TIME. SLAUGHTER TO GRAVITY, DRANING YELLOW URINE. NO LABIAL EDEMA, OR VAGINAL DISCHARGE NOTED AT THIS TIME. IV TO LEFT FOREARM, PATENT TO FLUSH, DRESSING CDI. SCABS TO FACE. VARICOSE VEINS NOTED TO BLE. SCD IN PLACE TO BLE. CAP REFILL BRISK. SKIN IS WARM TO BUL, COOL TO BLE. TRACE EDEMA TO BUE. S1 S2 NOTED, HEART TONES AND RHYTHM REGULAR. NO CHEST PAIN, SYNCOPE, OR DIZZINESS NOTED AT THIS TIME. PT HAS GENERALIZED WEAKNESS, PT IS BEDBOUND. PT HAS NO CONTRACTURES OR DEFORMITIES NOTED AT THIS TIME. WILL CONTINUE TO PROVIDE CARE PER PROTOCOL.
--- NOTE | 2017-08-06 20:17 | NUR ---
RT CELIS STARTED PT ON BREATHING TREATMENT. WILL CONTINUE TO MONITOR PT AND PROVIDE CARE PER PROTOCOL.
--- NOTE | 2017-08-06 20:43 | NUR ---
GAVE PT JELLO TO ASSESS IF SHE COULD SWALLOW PILLS. PT WAS ABLE TO SWALLOW WITHOUT ASPIRATING. WILL GIVE PT PO MEDS.
--- NOTE | 2017-08-06 23:07 | NUR ---
PT IS ASLEEP AT THIS TIME. NO S/S OF SOB NOTED. CHEST RISE SYMMETRICAL AND CLEAR LUNG SOUNDS NOTED TO BUL, DIMINISHED NOTED TO BBA. PT IS STABLE AT THIS TIME, WILL CONTINUE TO PROVIDE CARE PER PROTOCOL.
--- NOTE | 2017-08-06 23:44 | NUR ---
SPOKE WITH DR. MEDINA AND ASKED IF HE COULD DISCONTINUE THE PRECEDEX SINCE THE PT IS NO LONGER INTUBATEED, AND SHE IS CALM AND COOPERATIVE. HE AGREED TO DC THE PRECEDEX.
[2017-08-07] VITALS (8 sets, daily range): BP systolic 76–120; BP diastolic 23–75
--- NOTE | 2017-08-07 02:56 | NUR ---
lab wanted to know why urine cultures were ordered for the 29 of july and the . I called Dr. Wick to ask, and she stated that Dr. Ashraf wanted the urine cultures. Since Dr. Ashraf wanted the urine cultures, Dr. Wick will not DC the orders.
--- NOTE | 2017-08-07 04:25 | NUR ---
RETRIEVED URINE SAMPLE FROM PT. TOOK URINE SAMPLE TO LAB. RETURNED TO UNIT AT 0439. WILL CONTINUE TO PROVIDE CARE PER PROTOCOL.
[2017-08-07 04:59] LABS: BASOPHIL % 0.9 % (0-2); PLATELET COUNT 192 x10^3mcL (130-400)
[2017-08-07 05:12] LABS: RED CELL DISTRIBUTION WIDTH 16.8 % (11.5-14.5)
[2017-08-07 05:14] LABS: CALCIUM 8.7 mg/dL (8.5-10.1); CARBON DIOXIDE 26.2 mmol/L (21-32); CREATININE SERUM 1.2 mg/dL (0.6-1.0); MAGNESIUM 2.3 mg/dL (1.8-2.4); PHOSPHOROUS 4.1 mg/dL (2.5-4.9); POTASSIUM SERUM 4.2 mmol/L (3.5-5.1)
--- NOTE | 2017-08-07 07:00 | NUR ---
PROVIDED REPORT TO NURSE GEORGE. PT IS STABLE, AOX4.
--- NOTE | 2017-08-07 07:30 | NUR ---
RECEIVED PATIENT FROM NIGHT NURSE, PATIENT AAOX4, NO DISTRESS NOTED, RESPIRAITONS EVEN AND UNLABORED, ON 3L O2NC WITH O2 SAT 95%, NO N/V/D, DENIES PAIN, IV TO LFA CDI, CALL LIGHT AND BELONGINGS WITHIN REACH, AND WILL CONTINUE TO MONITOR.
--- NOTE | 2017-08-07 10:28 | NUR ---
DR. PACE, RESIDENTS, BOBBIN DUMPER AND PRIMARY RN AT BEDSIDE FOR MORNING ROUNDS. PLAN OF CARE DISCUSSED, PT STABLE TO TRANSFER TO [facility]. WILL CONT TO MONITOR
--- NOTE | 2017-08-07 12:55 | NUR ---
PATIENT WORKING WITH PHYSICAL THERAPY, PATIENT TOLERATING WELL, WILL CONTINUE TO MONITOR.
--- NOTE | 2017-08-07 15:15 | NUR ---
IV TO LFA INFILTRATED AND ELEVATED ON PILLOW, IV STARTED TO DIMITRI CDI AND FLUSHES WELL, WILL CONTINUE TO MONITOR.
--- NOTE | 2017-08-07 15:27 | NUR ---
PHYSICAL THERAPY DAILY NOTES CO-SIGN All documentation done by the Sustainability Project Coordinator for 08/07/17 has been reviewed. I agree with the documentation. Reviewed/Co-Signed by: Avril Colmenares Documentation Done by: Oli Ca PTA PATIENT MARCELLE TX WELL, PROGRESSING TOWARDS GOALS, ABLE TO MARCELLE INITIATING OOB WITH STANDING AND BEDSIDE GAIT, FAIR MARCELLE D/T BEING ORTHOSTATIC. NURSING AWARE AND MONITORING PATIENT. CONT WITH PT POC MARCELLE/SAFE, MONITOR VITALS.
--- NOTE | 2017-08-07 15:37 | NUR ---
PATIENT TRANSFERRED TO [facility] AAOX4, ABLE TO COMMUNICATE AND FOLLOW COMMANDS, DENIES PAIN, TRANSFERRED WITH O2 NC AT 3L, RESPIRATIONS EVEN AND UNLABORED, IV TO DIMITRI CDI AND FLUSHES WELL.
--- NOTE | 2017-08-07 15:40 | NUR ---
PT ARRIVED TO [facility] FROM ICU.
--- NOTE | 2017-08-07 15:49 | NUR ---
PT A/OX4, TELE 12, SR 91 PER BOAT CLEANER, DENIES CHEST PAIN, PULSES PRESENT, TRACE EDEMA NOTED ON LEFT ARM, LUNGS DIM ON 2L NC, DENIES SOB, BREATHING EVEN AND UNLABORED, BOWEL SOUNDS ACTIVE, LBM REPORTED THIS MORNING, LBM LOOSE, SLAUGHTER IN PLACE WITH NURA OUTPUT, GENREALIZED WEAKNESS, STATES SHE WAS UP EARLIER WITH PHYSICAL THERAPY, DRY SCABS TO FACE/BUE/BLE, DENIES ALL PAIN AT THIS TIME, IV TO LEFT UPPER ARM 24G, INFUSING FLAGYL AT 100ML/HR, CALM AND COOPERATIVE, FAMILY AT BEDSIDE, CALL LIGHT WITHIN REACH, WILL CONTINUE TO MONITOR.
--- NOTE | 2017-08-07 16:45 | NUR ---
DR. FALCON AWARE OF PT'S BP, STATED HE WILL ASSESS PT.
--- NOTE | 2017-08-07 17:08 | NUR ---
DR. FALCON ASSESSED PT, STATES THERE ARE NO CLINICAL SIGNS CORRELATED TO THE LOW BP, DR. FALCON DIRECTED PRIMARY RN TO HOLD ANY BP MEDS, TO TAKE BP MANUALLY, AND TO CONTINUE TO MONITOR.
--- NOTE | 2017-08-07 18:19 | NUR ---
PT DENIES SOB, DENIES PAIN, WATCHING TV, DENIES S/S OF HYPOTENSION, CALL LIGHT WITHIN REACH, WILL CONTINUE TO MONITOR.
--- NOTE | 2017-08-07 19:30 | NUR ---
RECEIVED PT AWAKE AND ALERT. AOX4. VERBAL WITH CLEAR SPEECH. NO S/S OF RESPIRATORY DISTRESS NOTED ON ROOM AIR, 97%. LUNGS DIMINISHED. ON TELE 25, NSR. DENIES ANY CHEST PAIN. ABD SOFT AND FLAT. BOWEL SOUNDS ACTIVE. SKIN WARM AND DRY. IV TO RIGHT FA PATENT AND INTACT. IV NS INFUSING WELL. NO S/S OF INFECTION NOTED. NOTED WITH TRACE EDEMA TO BLE. PULSES PALPABLE. SCDS IN PLACE. PT STATES PAIN TO NECK AND RIGHT HIP TOLERABLE AT THIS TIME. NO S/S OF DISTRESS NOTED. CALL LIGHT WITHIN REACH. WILL CONTINUE TO MONITOR.
--- NOTE | 2017-08-07 19:40 | NUR ---
RECEIVED PT AWAKE AND ALERT. SITTING UP AT EDGE OF BED. APPEARS SLIGHTLY DROWSY, BUT VERBAL WITH CLEAR SPEECH. AOX4. NO S/S OF RESPIRATORY DISTRESS NOTED ON ROOM AIR. DENIES ANY SOB. LUNGS CLEAR BILATERALLY. ON TELE 12, NSR. DENIES ANY CHEST PAIN. ABD SOFT AND ROUND. BOWEL SOUNDS ACTIVE. SKIN WARM AND DRY. NOTED SWELLING TO LEFT FA. IV TO LUE PATENT AND INTACT. IV D5 1/2NS INFUSING WELL. NO S/S OF INFECTION NOTED. DENIES ANY PAIN AT THIS TIME. F/C DRAINING NURA URINE. NO S/S OF DISTRESS NOTED. SCDS IN PLACE. CALL LIGHT WITHIN REACH. WILL CONTINUE TO MONITOR.
--- NOTE | 2017-08-07 20:00 | NUR ---
NOTED PT WITH BP 87/42, MAP 57, HR 92. PT AWAKE AND ALERT. DENIES ANY DIZZINESS OR DISCOMFORT AT THIS TIME. DR. LITTLEJOHN NOTIFIED AND AWARE.
--- NOTE | 2017-08-07 22:15 | NUR ---
ATTEMPTED TO GET PT UP AND WALKING PER DR. LITTLEJOHN, BUT PT REFUSED. RECHECKED BP 84/41, MAP 64. AWAKE AND VERBAL WITH CLEAR SPEECH. DENIES ANY DIZZINESS, PAIN, OR DISCOMFORT. DR. LITTLEJOHN NOTIFIED AND AWARE. WILL CONTINUE TO MONITOR.
--- NOTE | 2017-08-08 00:51 | NUR ---
PT RESTING IN BED WITH EYES CLOSED. BREATHING EQUAL AND UNLABORED. NO S/S OF RESPIRATORY DISTRESS NOTED ON ROOM AIR. IV PATENT AND INFUSING WELL TO LUE. NO S/S OF INFECTION NOTED. RESTING WITH RELAXED FACIAL FEATURES. CALL LIGHT WITHIN REACH. WILL CONTINUE TO MONITOR.
[2017-08-08 05:54] VITALS: BP 86/45
--- NOTE | 2017-08-08 06:09 | NUR ---
PT SLEPT WELL THROUGH THE NIGHT. AROUSED WITH VERBAL STIMULI. ALERT AND VERBAL WITH CLEAR SPEECH. MAKES NEEDS KNOWN. NO S/S OF RESPIRATORY DISTRESS NOTED. IV PATENT AND INFUSING WELL TO LUE. NO S/S OF INFECTION NOTED. DENIES ANY PAIN AT THIS TIME. NO S/S OF DISTRESS NOTED. CALL LIGHT WITHIN REACH. WILL CONTINUE TO MONITOR.
[2017-08-08 07:04] LABS: CARBON DIOXIDE 29.9 mmol/L (21-32); CHLORIDE SERUM 102 mmol/L (98-107); GFR1 > 60 mL/min; GLUCOSE SERUM 91 mg/dL (74-106); POTASSIUM SERUM 4.7 mmol/L (3.5-5.1); SODIUM SERUM 136 mmol/L (136-145)
[2017-08-08 07:12] LABS: BASOPHIL % 0.4 % (0-2); PLATELET COUNT 236 x10^3mcL (130-400)
[2017-08-08 07:15] LABS: RED CELL DISTRIBUTION WIDTH 16.5 % (11.5-14.5)
--- NOTE | 2017-08-08 07:35 | NUR ---
PT RECEIVED DURING CHANGE OF SHIFT, AROUSED FROM SLEEP, A/OX4, TELE 12, NSR, DENIES CHEST PAIN, PULSES PRESENT, SWELLING TO LUE, LUNGS CTA ON RA, DENIES SOB, BREATHING EVEN AND UNLABORED, DENIES N/V, LBM 08/07/17, LBM LOOSE, SLAUGHTER IN PLACE, NURA OUTPUT NOTED, GENERALIZED WEAKNESS, DRY SCABS TO FACE/BUE/BLE, DENIES PAIN, IV TO LEFT UPPER ARM INFUSING D5 1/2 NS AT 50ML/HR, CALM AND COOPERATIVE, CALL LIGHT WITHIN REACH, WILL CONTINUE TO MONITOR.
--- NOTE | 2017-08-08 08:11 | NUR ---
PT ASLEEP, NO INDICATION OF PAIN, BREATHING EVEN AND UNLABORED, CALL LIGHT WITHIN REACH, WILL CONTINUE TO MONITOR.
[2017-08-08 09:43] VITALS: BP 115/95
--- NOTE | 2017-08-08 09:53 | NUR ---
DR. PACE AND RESIDENTS MAKING ROUNDS, PLAN OF CARE DISCUSSED.
--- NOTE | 2017-08-08 10:05 | NUR ---
PT DENIES SOB, DENIES PAIN, RECEIVED MORNING MEDS, BP RELATED MEDICATIONS HELD PER DR. FALCON, CALL LIGHT WITHIN REACH, WILL CONTINUE TO MONITOR.
--- NOTE | 2017-08-08 11:10 | NUR ---
PT AROUSED FROM SLEEP, DENIES SOB, DENIES PAIN, BS 150, NO COVERAGE NEEDED PER RISS, CALL LIGHT WITHIN REACH, WILL CONTINUE TO MONITOR.
--- NOTE | 2017-08-08 12:08 | NUR ---
PT ASLEEP, NO INDICATION OF PAIN, BREATHING EVEN AND UNLABORED, CALL LIGHT WITHIN REACH, WILL CONTINUE TO MONITOR.
[2017-08-08 13:00] VITALS: BP 90/40
--- NOTE | 2017-08-08 13:37 | NUR ---
PT ASLEEP BUT AROUSABLE, DENIES SOB, DENIES PAIN, LUNCH TRAY AT BEDSIDE, WILL CONTINUE TO MONITOR.
--- NOTE | 2017-08-08 14:04 | NUR ---
PT ASLEEP, NO INDICATION OF PAIN, BREATHING EVEN AND UNLABORED, CALL LIGHT WITHIN REACH, WILL CONTINUE TO MONITOR.
--- NOTE | 2017-08-08 15:03 | NUR ---
PT ASLEEP, NO INDICATION OF PAIN, BREATHING EVEN AND UNLABORED, CALL LIGHT WITHIN REACH WILL CONTINUE TO MONITOR.
--- NOTE | 2017-08-08 16:35 | NUR ---
PT AROUSED FROM SLEEP, BS 109, NO COVERAGE NEEDED, CALL LIGHT WITHIN REACH, WILL CONTINUE TO MONITOR.
--- NOTE | 2017-08-08 17:18 | NUR ---
PT ASLEEP, NO INDICATION OF PAIN, BREATHING EVEN AND UNLABORED, CALL LIGHT WITHIN REACH, WILL CONTINUE TO MONITOR.
[2017-08-08 17:39] VITALS: BP 99/58
--- NOTE | 2017-08-08 18:17 | NUR ---
PT DENIES SOB, DENIES PAIN, NEW STAT LOCK IN PLACE, CALL LIGHT WITHIN REACH, WILL ENDORSE PT TO NEXT SHIFT.
[2017-08-08 19:30] VITALS: BP 100/55
--- NOTE | 2017-08-08 19:30 | NUR ---
RECEIVED PT RESTING IN BED WITH EYES CLOSED. AROUSED BY VERBAL AND TACTILE STIMULI. ALERT AND VERBAL WITH CLEAR SPEECH. NO S/S OF RESPIRATORY DISTRESS NOTED ON ROOM AIR. LUNGS DIMINISHED. ON TELE 12, NSR. DENIES ANY CHEST PAIN. ABD SOFT AND ROUND. BOWEL SOUNDS ACTIVE. SKIN WARM AND DRY. SLIGHT SWELLING PERSISTS TO LEFT ARM. IV TO LUE PATENT AND INTACT. NO S/S OF INFECTION NOTED. NO PEDAL EDEMA NOTED. SCDS IN PLACE. F/C DRAINING NURA URINE. DENIES ANY PAIN AT THIS TIME. NO S/S OF DISTRESS NOTED. CALL LIGHT WITHIN REACH. WILL CONTINUE TO MONITOR.
[2017-08-08 22:39] VITALS: BP 87/42
[2017-08-09] VITALS (7 sets, daily range): BP systolic 96–114; BP diastolic 60–77
--- NOTE | 2017-08-09 00:30 | NUR ---
PT RESTING IN BED WITH EYES CLOSED. BREATHING EQUAL AND UNLABORED. NO S/S OF RESPIRATORY DISTRESS NOTED. IV PATENT AND INFUSING WELL. RESTING WITH RELAXED FACIAL FEATURES. CALL LIGHT WITHIN REACH. WILL CONTINUE TO MONITOR.
--- NOTE | 2017-08-09 05:53 | NUR ---
PT SLEPT WELL THROUGH THE NIGHT. BREATHING EQUAL AND UNLABORED. NO S/S OF RESPIRATORY DISTRESS NOTED ON ROOM AIR. AROUSED BY VERBAL STIMULI. IV PATENT AND INTACT TO LUE. NO S/S OF INFECTION NOTED. IV FLAGYL INFUSING WELL. DENIES ANY PAIN OR DISCOMFORT AT THIS TIME. NO S/S OF DISTRESS NOTED. F/C DRAINING NURA URINE. CALL LIGHT WITHIN REACH. WILL CONTINUE TO MONITOR.
[2017-08-09 06:35] LABS: CALCIUM 8.8 mg/dL (8.5-10.1); CARBON DIOXIDE 24.3 mmol/L (21-32); CHLORIDE SERUM 103 mmol/L (98-107); GFR1 > 60 mL/min; GLUCOSE SERUM 121 mg/dL (74-106); POTASSIUM SERUM 4.2 mmol/L (3.5-5.1); SODIUM SERUM 136 mmol/L (136-145)
--- NOTE | 2017-08-09 07:24 | NUR ---
BEDSIDE REPORT RECEIVED FROM [facility] SHIFT NURSE AT THIS TIME. PATIENT AWAKE, ALERT, NO SIGNS OF DISTRESS NOTED. DENIES CHEST PAIN, DIZZINESS PRESENT, TELE# 12, HR 105. SCD'S IN PLACE, ON ROOM AIR, SLAUGHTER CATHETER TO GRAVITY WITH NURA COLORED URINE. D5 1/2NS INFUSING TO LUE AT 50 ML/HR, NO REDNESS NOR INFILTRATION NOTED TO SITE. CALM AND COOPERATIVE WITH CARE, ALL SAFETY MEASURES IN PLACE, CALL LIGHT WITHIN REACH, BED LOCKED AND TO LOWEST POSITION, BED ALARM ON, WILL CONTINUE TO MONITOR.
--- NOTE | 2017-08-09 08:29 | NUR ---
ROUNDS MADE AT THIS TIME WITH MD TEAM, CHARGE NURSE DEAN, AND DR SAMSON. PATIENT AWAKE, ALERT, COMPLAINS OF DIZZINESS AND BLURRED VISION. PATIENT ADMITS TO RECENT METH USE PRIOR TO ADMISSION, PATIENT EDUCATED BY DR SAMSON IN REGARDS TO DANGERS OF METH USE, PATIENT INFORMED EF IS 10-15%. SLAUGHTER CATHETER TO BE DC'D, CLAMPED AT THIS TIME FOR BLADDER TRAINING PER MD ORDER. PATIENT INSTRUCTED TO USE CALL LIGHT WHEN URGE TO URINATE ARISES. BED ALARM ON, CALL LIGHT IN HAND, WILL CONTINUE TO MONITOR.
--- NOTE | 2017-08-09 09:15 | NUR ---
PATIENT STATES SHE HAS THE SENSATION OF VOIDING, KASANDRA GAN MD MADE AWARE, PATIENT WANTS TO AMBULATE IN ROOM, STATES HER LEFT FOOT FEELS NUMB, PATIENT ASSISTED OUT OF BED AND ATTEMPTED TO TAKE 5 STEPS BUT WAS UNSTEADY. PATIENT ASSISTED TO CHAIR, FAMILY AT BEDSIDE, CALL LIGHT IN HAND, PATIENT INSTRUCTED TO CALL FOR ASSISTANCE BACK TO BED.
--- NOTE | 2017-08-09 12:07 | NUR ---
PATIENT HAD 2 ASSIST PHYSICAL THERAPY, WAS ABLE TO WALK 100 FT TO PEDERSON BUT HAD TO SIT IN WHEELCHAIR ON RETURN, DR. RAMSEY PRESENT IN ROOM AND SPOKE TO PATIENT ABOUT CONDITION AND INTERVENTIONS, SLAUGHTER CATHETER REMOVED, 350CC NURA URINE IN BAG, PATIENT TOLERATED WELL, FRANCA SANTAMARIA AT BEDSIDE, WILL CONTINUE TO MONITOR.
--- NOTE | 2017-08-09 15:31 | NUR ---
PATIENT ASSISTED TO BATHROOM AT THIS TIME, VOID X1, ASSISTED BACK TO BED SAFELY. ALL SAFETY MEASURES IN PLACE, WILL CONTINUE TO MONITOR.
--- NOTE | 2017-08-09 18:13 | NUR ---
PATIENT AWAKE, ALERT, WATCHING TV, NO SIGNS OF DISTRESS NOTED. ALL NEEDS ATTENDED TO. WILL CONTINUE TO MONITOR.
--- NOTE | 2017-08-09 19:30 | NUR ---
PT RESTING IN BED, NO C/O PAIN AT THIS TIME. RESP EVEN AND UNLABORED, DIMINISHED BILAT LOWER BASES. NO REPORT OF SOB AT THIS TIME, ON ROOM AIR. TELE # 12, SR 97. NO C/O CP AT THIS TIME. IV INFUSING TO LFA 50ML/HR OF D5 1/2 NS. NO REPORT OF PAIN, REDNESS OR SWELLING AT THIS TIME. PT REPORTS NUMBNESS IN LLE, LEFT FOOT WEAKER UPON PUSHING AGAINST RESISTANCE COMPARED TO RT FOOT. PT STATES NUMBNESS IN LT FOOT PREVENT HER FROM AMBULATING MORE WITH PT. PT DENIES DYSURIA AT THIS TIME. PT CALM AND COOPERATIVE WITH CARE AT THIS TIME. CALL LIGHT WITHIN REACH, BED IN LOWEST POSITION, WILL CONTINUE TO MONITOR.
--- NOTE | 2017-08-10 00:40 | NUR ---
PT RESTING WELL IN BED, RESP EVEN AND UNLABORED ON RA. IV INFUSING TO LFA 50ML/HR. NO REDNESS, SWELLING OR PAIN NOTED. SIDE RAILS UP X2, SCD'S ON, CALL LIGHT WITHIN REACH, BED IN LOWEST POSITION, WILL CONTINUE TO MONITOR.
--- NOTE | 2017-08-10 05:19 | NUR ---
PT RESTING WELL THROUGHOUT THE NIGHT, NO C/O PAIN DURING SHIFT. PT DENIES SOB, CP, OR PALPITATIONS AT THIS TIME. RESP EVEN AND UNLABORED, DIM BILAT ON RA. PT REPORTED NUMBNESS IN LEFT FOOT, CAN MOVE FOOT BUT HAS DIFFICULTY WIGGLING LEFT TOES IN COMPARISON TO RT FOOT. PT STATES THIS LEFT FOOT NUMBNESS MAKES AMBULATION DIFFICULT D/T NEEDS TO VISUALIZE FOOT TO MOVE IT. PT STATES THIS IS A NEW ONSET PROBLEM. IV INFUSING TO LFA D5 1/2 NS @ 50ML/HR, NO REDNESS, SWELLING OR PAIN NOTED AT THIS TIME. PT HAS DRIED SCABS ON FACE, BLE/BUE. PT REMAINED ALERT & ORIENTED, SLEPT WELL BUT EASY TO AROUSE. SAFETY AND COMFORT MEASURES PROVIDED FOR, CALL LIGHT WITHIN REACH, BED IN LOWEST POSITION, WILL CONTINUE TO MONITOR.
[2017-08-10 05:59] LABS: BASOPHIL % 0.4 % (0-2); PLATELET COUNT 267 x10^3mcL (130-400)
[2017-08-10 06:10] VITALS: BP 105/63
[2017-08-10 06:34] LABS: CARBON DIOXIDE 25.7 mmol/L (21-32); CHLORIDE SERUM 104 mmol/L (98-107); CREATININE SERUM 0.9 mg/dL (0.6-1.0); GFR1 > 60 mL/min; GLUCOSE SERUM 90 mg/dL (74-106); POTASSIUM SERUM 4.6 mmol/L (3.5-5.1); SODIUM SERUM 137 mmol/L (136-145)
[2017-08-10 06:42] LABS: RED CELL DISTRIBUTION WIDTH 17.1 % (11.5-14.5)
--- NOTE | 2017-08-10 07:28 | NUR ---
PT RESTING IN BED, REPORT GIVEN TO DAY SHIFT NURSE, ALL NURSIGN CARE ENDORSED, CALL LIGHT WITHIN REACH, BED LOWEST POSITION.
--- NOTE | 2017-08-10 08:00 | NUR ---
ALERT/ORIENTED X3. TEL#12 = SRST. HR = 86 NOW. NO RESP DISTRESS ON RA. O2 SAT 98%. C/O LLE NUMBNESS. AMBULATED ON UNSTEADY GAIT. NEED ASSIST FOR NRP. FONISHED 100% ON CARDIAC DIET BREAKFAST. IVF OF D5 1/2NS 50CC/HR INFUSING WELL, IV SITE TO LUE INTACT. CALL LIGHT IN REACH.
[2017-08-10 08:30] VITALS: BP 94/55
--- NOTE | 2017-08-10 09:00 | NUR ---
DR. BAIG AND MEDICAL TEAM MADE MORNING ROUND. PLAN OF CARE DISCUSSED WITH PATIENT, INCLUDED WITH XR OF LUMBER SPINAL. MAY DISCHARGE TODAY. PATIENT AGREED WITH PLAN OF CARE.
[2017-08-10 09:41] VITALS: BP 94/55
[2017-08-10 13:28] VITALS: BP 110/55
--- NOTE | 2017-08-10 14:32 | NUR ---
Follow-up Nutrition Assessment Dx:Intubated, metabolic encephalopathy and HTN Labs: (08/10) B, BUN:20H, Hct:47H Meds: Aldactone, D5 NS, Humulin PRN, Lactinex, Lasix, Pepcid, Zofran, Heparin Diet: Cardiac PO intake: (08/07) D:100%, (08/09) L:90% (08/10) B:100% Weights: (07/29) 196# (08/02)190# (08/06) 187# wt decrease possibly due to fluid shifts. 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 Pt states she is homeless and would like help to find long term. Per bed huddle this morning, pt was supposed to discharge today but is staying due to new left leg foot drop. During visit, observed pt laying in bed with no c/o N/V/D/C and with good appetite. Pt had no nutrition related questions or concerns during RD visit. Estimated Nutritional Needs unchanged from prior assessment:Adjusted body weight 60kg Energy: 1500-1800kcal/day (25-30kcal/kg for maintenance) Protein: 48-60g/day (0.8-1.0g/kg for maintenance) Fluid:1200-1500ml/day (20-25ml/kg for CHF) or per doctor Nutrition Diagnosis 1. Inadequate protein/energy intake related to s/p extubation as evidencd by pt currently NPO pending swallow evalution (resolved, pt on Cardiac diet) Intervention 1. Recommend continue with current cardiac diet. Monitor/Evaluate Previous goal: PO intake to meet at least 75% est needs (met) Goal: PO intake at least 75% of estimated needs Monitor: PO intake, Labs, GI function F/U in 7 days as low risk: 08/17
--- NOTE | 2017-08-10 14:33 | NUR ---
1. Recommend continue with current cardiac diet.
--- NOTE | 2017-08-10 16:32 | NUR ---
PHYSICAL THERAPY DAILY NOTES CO-SIGN All documentation done by the Advertising Account Representative for 08/10/17 has been reviewed. I agree with the documentation. Reviewed/Co-Signed by: Jed Gerber PT Documentation Done by:RAFI BOYLE NEIGHBORHOOD PLANNER POC REVIEWED W/ NEIGHBORHOOD PLANNER; WILL BENEFIT W/ P.T. DURING ACUTE STAY; DEMO (L) FOOT DROP, IMPAIRED SENSATION PLANTAR ASPECT (L)FOOT, DECREASED SENSATION DORSAL ASPECT (L)FOOT; INTACT PROPRIOCEPTION (L)FOOT; STATES HER PERSONAL FWW IS IN HER STORAGE. 08/10/17 XR L/S:MILD DISC DEG L5-S1; US LE:(-)DVT
[2017-08-10 17:51] VITALS: BP 96/59
--- NOTE | 2017-08-10 17:51 | NUR ---
CONDITION STABLE. NO C/O PAIN. SLEEPING MOSTLY. K-PAD APPLIED PER ORDER. IV TO LUE LEAKING AND D/C'D. NEW IV TO RH WITH 22G NEEDLE. ENDOARSED CARE TO NOC NURSE.
--- NOTE | 2017-08-10 18:05 | NUR ---
PATIENT DENIED BACK PAIN. REFUSED K-PAD NOW. K-PAD AT BED SIDE.
--- NOTE | 2017-08-10 19:47 | NUR ---
Awake and verbally responsive. No resp.distress noted. Denies pain at this time. Denies n/v. Will cont.to monitor. Call light within reach.
[2017-08-10 20:47] VITALS: BP 100/47
--- NOTE | 2017-08-11 04:02 | NUR ---
Afebrile. No significant change in condition noted. Denies pain. No cough or congestion noted. Cont.on IV flagyl. In no apparent distress.
[2017-08-11 05:55] VITALS: BP 98/62
--- NOTE | 2017-08-11 07:17 | NUR ---
PATIENT IS SLEEPING ON HER LEFT SIDE. PATIENT IS IN NO APPARENT DISTRESS, CHEST RISE IS EQUAL AND UNLABORED. PATIENT HAS HEATING PAD IN PLACE, SCDS ARE AT BEDSIDE. PATIENT HAS TRACE EDEAM BLE. PATIENT IS ON RA, INCENTIVE SPIROMETER AT BEDSIDE. PATIENT HAS D5 1/2 NS INFUSING TO SITE WNL. PATIENT IS TELE 12, SR. CALL LIGHT IS WITHIN REACH, SIDE RAILS ARE UP AND BED IS LOCKED AND IN LOW POSITION.
--- NOTE | 2017-08-11 08:40 | NUR ---
PATIENT ABLE TO TOLERATE MORNING MEDICATIONS. PATIENT STATED NUMBNESS AND TINGLING TO LL FOOT. PATIENTS PULSE IS WEAK, NO EDEMA NOTED. NO PAIN, PATIENT STATES ABLE TO AMBULATES ASN NEEEDED WITH NO WEAKNESS TO EXTREMITY. CAP REFILL LESS THAN 3. BP LOPRESSOR, LASIX AND ALDACTONE HELD DUE TO LOW BP
[2017-08-11 09:22] VITALS: BP 95/56
--- NOTE | 2017-08-11 10:35 | NUR ---
PEPCID GIVEN OVER 2 MIN VIA IV. PATIENT SELF AMBULATED TO BATHROOM, GAIT IS STEADY. PATIENT DENIES PAIN AND SOB AT THIS TIME. CALL LIGHT IS WITHIN REACH.
[2017-08-11 11:51] VITALS: BP 95/56
--- NOTE | 2017-08-11 12:30 | NUR ---
PATIENT IS SITTING UP IN BED EATING LUNCH. PATIENT STATES THAT SHE IS NOT IN PAIN AT THIS TIME. PATIENT REFUSING TO DO PT. CALL LIGHT IS WITHIN REACH.
--- NOTE | 2017-08-11 13:08 | NUR ---
PATIENT IS CALM, EATING LUNCH. PATIENT STATES SLIGHT DIZZINESS BUT REPORTS SHE THINKS SHE SAT UP TOO FAST. PATIENT RR IS 16. PATIENT DENIES PAIN AND SOB AT THIS TIME. CALL LIGHT IS WITHIN REACH.
[2017-08-11 13:54] VITALS: BP 91/52
--- NOTE | 2017-08-11 14:24 | NUR ---
PATIENT GIVEN DISCHARGE INSTRUCTIONS, VERBALIZED UNDERSTANDING. TELE REMOVED, STEM ROLLER OR CRUSHER OPERATOR PAT RETURNED. IV REMOVED CATHETER INTACT, SITE COVERED WITH GAUZE AND TAPE PATIENT DISCHARGING WITH WALKER. PATIENT LEAVING FLOOR WITH ALL BELONGINGS VIA WHEELCHAIR WITH PAT.
== END 2017-08-11 14:33 | disposition home or self-care (01) | DRG 130 ==
LOC: ED 23:42 → IC 07-29 02:50 → DU 07-29 02:50 → IC 07-29 03:50 → DU 08-07 15:38
PROVIDERS: Emergency Medicine; Family Medicine; Family Medicine Sports Medicine; Student in an Organized Health Care Education/Training Program; ADMIT Family Medicine
PROC: 5A1955Z Respiratory Ventilation, Greater than 96 Consecutive Hours (ICD-10-PCS; principal; 2017-07-29)
PROC: 0BH17EZ Insertion of Endotracheal Airway into Trachea, Via Natural or Artificial Opening (ICD-10-PCS; 2017-07-29)
DX: J96.01 Acute respiratory failure with hypoxia (principal); N17.0 Acute kidney failure with tubular necrosis; G92 Toxic encephalopathy; I50.43 Acute on chronic combined systolic (congestive) and diastolic (congestive) heart failure; E44.0 Moderate protein-calorie malnutrition; I42.0 Dilated cardiomyopathy; L03.116 Cellulitis of left lower limb; E87.1 Hypo-osmolality and hyponatremia; I27.20 Pulmonary hypertension, unspecified; I11.0 Hypertensive heart disease with heart failure; F15.10 Other stimulant abuse, uncomplicated; I16.1 Hypertensive emergency; J44.9 Chronic obstructive pulmonary disease, unspecified; Z59.0 Homelessness; E87.6 Hypokalemia; E87.8 Other disorders of electrolyte and fluid balance, not elsewhere classified; E83.41 Hypermagnesemia; E83.39 Other disorders of phosphorus metabolism; K76.0 Fatty (change of) liver, not elsewhere classified; E66.9 Obesity, unspecified; Z68.34 Body mass index [BMI] 34.0-34.9, adult; F17.210 Nicotine dependence, cigarettes, uncomplicated; Z91.19 Patient's noncompliance with other medical treatment and regimen
CPT/HCPCS: 36600; 82962; 83880; 84439; 94150; 97110-GP; 97116-GP; 97530-GP; A4628; G0480; J0692; J0696; J1644; J1815; J1940; J2060; J2250; J2270; J2704; J2920; J2930; J3480; J3490; J7030; J7620; Q0092

== ENCOUNTER 2017-08-11 18:44 | Emergency (ER) | payer MEDICAID ==
[~2017-08-11] VITALS: Ht 152.4 cm; Wt 90.7 kg
[2017-08-11 21:30] VITALS: BP 108/80
== END 2017-08-11 21:30 | disposition home or self-care (01) ==
LOC: ED 18:44
DX: R25.2 Cramp and spasm (principal); I11.0 Hypertensive heart disease with heart failure; I50.9 Heart failure, unspecified; G62.9 Polyneuropathy, unspecified; Z88.0 Allergy status to penicillin; Z88.8 Allergy status to other drugs, medicaments and biological substances

== ENCOUNTER 2018-01-31 18:49 | Emergency (ER) | payer MEDICAID ==
[~2018-01-31 18:49] MED LIST changes: +ESCITALOPRAM OX10 MG PO; +METOPROLOL TART25 M1 PO
[2018-01-31 20:55] LABS: BASOPHIL % 0.7 % (0-2); PLATELET COUNT 263 x10^3mcL (130-400); RED CELL DISTRIBUTION WIDTH 14.4 % (11.5-14.5)
[2018-01-31 21:01] LABS: CALCIUM 8.6 mg/dL (8.5-10.1); CARBON DIOXIDE 25.9 mmol/L (21-32); CREATININE SERUM 1.4 mg/dL (0.6-1.0)
[2018-01-31 21:06] LABS: ALBUMIN 3.6 g/dL (3.4-5.0); BILIRUBIN TOTAL 0.8 mg/dL (0.20-1.00); TOTAL PROTEIN, SERUM 7.4 g/dL (6.4-8.2)
[2018-01-31 23:48] VITALS: BP 127/92
[2018-02-05] MEDS ORDERED: LEVAQUIN750 MG PO (07:09)
[2018-02-05] MEDS ORDERED: LAC PO (07:10)
[2018-02-05] MEDS ORDERED: CLEOCIN HCL300 MG PO (07:10)
== END 2018-01-31 23:48 | disposition home or self-care (01) ==
LOC: ED 18:49
PROVIDERS: Emergency Medicine
DX: F15.10 Other stimulant abuse, uncomplicated (principal); I42.9 Cardiomyopathy, unspecified; Z88.0 Allergy status to penicillin
CPT/HCPCS: 36415; 83880; J1885; J7512; J7613; J7644; Q0092

== ENCOUNTER 2018-02-01 09:55 | Emergency (ER) | payer MEDICAID ==
[~2018-02-01] VITALS: Ht 152.4 cm; Wt 96.6 kg
[2018-02-01 10:03] VITALS: Ht 152.4 cm; Wt 96.6 kg
[2018-02-01 12:26] VITALS: BP 109/78
[2018-02-05] MEDS ORDERED: LEVAQUIN750 MG PO (07:09)
[2018-02-05] MEDS ORDERED: LAC PO (07:10)
[2018-02-05] MEDS ORDERED: CLEOCIN HCL300 MG PO (07:10)
== END 2018-02-01 12:25 | disposition home or self-care (01) ==
LOC: ED 09:55
DX: R06.02 Shortness of breath (principal); M25.511 Pain in right shoulder; I11.0 Hypertensive heart disease with heart failure; I50.9 Heart failure, unspecified; R07.89 Other chest pain; R05 Cough; Z88.0 Allergy status to penicillin; Z88.8 Allergy status to other drugs, medicaments and biological substances
CPT/HCPCS: J1885; J7613; J7644

== ENCOUNTER 2018-02-05 23:47 | Emergency (ER) | payer MEDICAID ==
[~2018-02-05] VITALS: Ht 152.4 cm; Wt 103.0 kg
[~2018-02-05 23:47] MED LIST changes: +CLEOCIN HCL300 MG PO; +LEVAQUIN750 MG PO
[2018-02-06 00:08] VITALS: Ht 152.4 cm; Wt 103.0 kg
[2018-02-06 03:01] LABS: BASOPHIL % 0.5 % (0-2); PLATELET COUNT 232 x10^3mcL (130-400)
[2018-02-06 03:11] LABS: CALCIUM 8.5 mg/dL (8.5-10.1); CARBON DIOXIDE 25.1 mmol/L (21-32); CREATININE SERUM 1.4 mg/dL (0.6-1.0); POTASSIUM SERUM 4.3 mmol/L (3.5-5.1)
[2018-02-06 03:16] LABS: BILIRUBIN TOTAL 0.38 mg/dL (0.20-1.00); TOTAL PROTEIN, SERUM 6.8 g/dL (6.4-8.2)
[2018-02-06 03:17] LABS: ALBUMIN 3.1 g/dL (3.4-5.0)
[2018-02-06 03:29] LABS: RED CELL DISTRIBUTION WIDTH 15.2 % (11.5-14.5)
[2018-02-06 04:48] VITALS: BP 122/68
== END 2018-02-06 04:48 | disposition home or self-care (01) ==
LOC: ED 23:47
PROVIDERS: Emergency Medicine Emergency Medical Services
DX: K80.50 Calculus of bile duct without cholangitis or cholecystitis without obstruction (principal); I11.0 Hypertensive heart disease with heart failure; I50.9 Heart failure, unspecified; Z88.0 Allergy status to penicillin; Z88.8 Allergy status to other drugs, medicaments and biological substances
CPT/HCPCS: 36415; 83880; Q0092

== ENCOUNTER 2018-02-14 22:16 | Emergency (ER) | payer MEDICAID ==
[~2018-02-14] VITALS: Ht 152.4 cm; Wt 94.5 kg
[2018-02-14 22:46] VITALS: Ht 152.4 cm; Wt 94.5 kg
[2018-02-15 02:31] VITALS: BP 145/76
== END 2018-02-15 02:31 | disposition home or self-care (01) ==
LOC: ED 22:16
DX: R10.11 Right upper quadrant pain (principal); M54.12 Radiculopathy, cervical region; F15.10 Other stimulant abuse, uncomplicated; I11.0 Hypertensive heart disease with heart failure; Z88.0 Allergy status to penicillin

== ENCOUNTER 2018-02-28 22:57 | Emergency (ER) | payer MEDICAID ==
[2018-03-01 01:43] VITALS: BP 124/71
== END 2018-03-01 01:43 | disposition home or self-care (01) ==
LOC: ED 22:57
DX: S46.911A Strain of unspecified muscle, fascia and tendon at shoulder and upper arm level, right arm, initial encounter (principal); I42.9 Cardiomyopathy, unspecified; F15.10 Other stimulant abuse, uncomplicated; I11.0 Hypertensive heart disease with heart failure; Z88.0 Allergy status to penicillin; Z88.8 Allergy status to other drugs, medicaments and biological substances; X58.XXXA Exposure to other specified factors, initial encounter; Y93.89 Activity, other specified; Y92.89 Other specified places as the place of occurrence of the external cause; Y99.8 Other external cause status
CPT/HCPCS: J1885; Q0092

== ENCOUNTER 2018-05-20 17:04 | Emergency (ER) | payer MEDICAID ==
[~2018-05-20] VITALS: Ht 152.4 cm; Wt 94.3 kg
[2018-05-20 17:14] VITALS: Ht 152.4 cm; Wt 94.3 kg
[2018-05-20 17:59] LABS: BASOPHIL % 0.7 % (0-2); PLATELET COUNT 264 x10^3mcL (130-400)
[2018-05-20 18:00] LABS: CALCIUM 9.2 mg/dL (8.5-10.1); CARBON DIOXIDE 23.5 mmol/L (21-32); CREATININE SERUM 1.5 mg/dL (0.6-1.0); POTASSIUM SERUM 3.1 mmol/L (3.5-5.1)
[2018-05-20 18:03] LABS: RED CELL DISTRIBUTION WIDTH 21.1 % (11.5-14.5)
[2018-05-20 18:12] LABS: ALBUMIN 3.4 g/dL (3.4-5.0); BILIRUBIN TOTAL 1.7 mg/dL (0.20-1.00); T4(THYROXINE) 8.8 ug/dL (4.7-13.3); TOTAL PROTEIN, SERUM 7.7 g/dL (6.4-8.2)
[2018-05-20 18:36] LABS: rbc morphology (normal/abnorm) ABNORMAL (NORMAL); target cell (codocyte) 1+
[2018-05-20 19:01] LABS: microscopic required? YES; urine erythrocyte TRACE (NEGATIVE)
[2018-05-20 19:19] LABS: AMPHETAMINE QUAL UR POSITIVE (See below)
[2018-05-20 21:48] VITALS: BP 133/97
== END 2018-05-20 21:48 | disposition home or self-care (01) ==
LOC: ED 17:04
PROVIDERS: Emergency Medicine
DX: F41.9 Anxiety disorder, unspecified (principal); R06.02 Shortness of breath; I11.0 Hypertensive heart disease with heart failure; I50.9 Heart failure, unspecified; I43 Cardiomyopathy in diseases classified elsewhere; F15.20 Other stimulant dependence, uncomplicated; E66.9 Obesity, unspecified; I83.93 Asymptomatic varicose veins of bilateral lower extremities; E87.6 Hypokalemia; Z59.0 Homelessness; Z88.0 Allergy status to penicillin; Z88.8 Allergy status to other drugs, medicaments and biological substances
CPT/HCPCS: 36600; 83880; Q0092

== ENCOUNTER 2018-05-30 13:03 | Inpatient (IN) | payer MEDICAID ==
[~2018-05-30] VITALS: Ht 152.4 cm; Wt 93.0 kg
[2018-05-30 13:25] VITALS: Ht 152.4 cm; Wt 93.0 kg
[2018-05-30 14:27] LABS: BASOPHIL % 1.7 % (0-2); PLATELET COUNT 300 x10^3mcL (130-400)
[2018-05-30 14:50] LABS: CALCIUM 9.1 mg/dL (8.5-10.1); CARBON DIOXIDE 26.6 mmol/L (21-32); POTASSIUM SERUM 3.8 mmol/L (3.5-5.1)
[2018-05-30 14:52] LABS: RED CELL DISTRIBUTION WIDTH 21.1 % (11.5-14.5)
[2018-05-30] MEDS ORDERED: LISINOPRIL10 MG PO (15:28)
[2018-05-30] MEDS ORDERED: LEXAPRO20 MG PO (15:29)
[2018-05-30] MEDS ORDERED: LOPRESSOR50 M1 (15:29)
[2018-05-30 17:30] VITALS: BP 115/66
[2018-05-30 17:46] LABS: MAGNESIUM 2.1 mg/dL (1.8-2.4)
[2018-05-30 18:04] LABS: CHOLESTEROL/HDL RATIO 2.8
[2018-05-30 20:41] VITALS: BP 118/70
[2018-05-31 00:55] LABS: microscopic required? YES; urine erythrocyte NEGATIVE (NEGATIVE)
[2018-05-31 01:27] LABS: AMPHETAMINE QUAL UR POSITIVE (See below)
[2018-05-31 05:15] VITALS: BP 122/75
[2018-05-31 06:56] LABS: CARBON DIOXIDE 26.7 mmol/L (21-32); POTASSIUM SERUM 3.5 mmol/L (3.5-5.1)
[2018-05-31 08:26] LABS: BASOPHIL % 0.4 % (0-2); PLATELET COUNT 296 x10^3mcL (130-400)
[2018-05-31 08:27] LABS: RED CELL DISTRIBUTION WIDTH 21.2 % (11.5-14.5)
[2018-05-31 08:28] LABS: rbc morphology (normal/abnorm) ABNORMAL (NORMAL)
[2018-05-31 08:48] VITALS: BP 124/83
[2018-05-31 12:32] VITALS: BP 104/74
[2018-05-31 17:24] VITALS: BP 97/52
[2018-05-31 20:50] VITALS: BP 102/58
[2018-06-01 05:07] VITALS: BP 101/58
[2018-06-01 10:12] VITALS: BP 110/74
[2018-06-01 12:47] VITALS: BP 137/50
[2018-06-01 14:23] LABS: CALCIUM 8.4 mg/dL (8.5-10.1); CARBON DIOXIDE 30.3 mmol/L (21-32); CREATININE SERUM 1.6 mg/dL (0.6-1.0); MAGNESIUM 1.9 mg/dL (1.8-2.4); POTASSIUM SERUM 3.5 mmol/L (3.5-5.1)
[2018-06-01 16:54] VITALS: BP 130/49
[2018-06-01 20:49] VITALS: BP 142/80
[2018-06-02 04:51] VITALS: BP 149/82
[2018-06-02 05:59] LABS: BASOPHIL % 0.8 % (0-2); PLATELET COUNT 294 x10^3mcL (130-400)
[2018-06-02 06:08] LABS: RED CELL DISTRIBUTION WIDTH 20.8 % (11.5-14.5)
[2018-06-02 06:14] LABS: CALCIUM 8.4 mg/dL (8.5-10.1); CARBON DIOXIDE 32.1 mmol/L (21-32); CREATININE SERUM 1.5 mg/dL (0.6-1.0); POTASSIUM SERUM 3.8 mmol/L (3.5-5.1)
[2018-06-02 08:11] LABS: ovalocyte/elliptocyte 1+; tear drop cell (dacryocyte) 1+
[2018-06-02 08:15] LABS: rbc morphology (normal/abnorm) ABNORMAL (NORMAL)
[2018-06-02 08:33] VITALS: BP 130/83
[2018-06-02 12:16] VITALS: BP 102/60
[2018-06-02 15:21] VITALS: BP 102/60
[2018-06-02 16:00] VITALS: BP 102/60
[2018-06-02 17:01] VITALS: BP 105/71
== END 2018-06-02 18:20 | disposition home or self-care (01) | DRG 194 ==
LOC: ED 13:03 → DU 14:59
PROVIDERS: Emergency Medicine; Family Medicine; Internal Medicine
DX: I13.0 Hypertensive heart and chronic kidney disease with heart failure and stage 1 through stage 4 chronic kidney disease, or unspecified chronic kidney disease (principal); I47.2 Ventricular tachycardia; N17.9 Acute kidney failure, unspecified; I42.8 Other cardiomyopathies; I50.23 Acute on chronic systolic (congestive) heart failure; I45.81 Long QT syndrome; N18.9 Chronic kidney disease, unspecified; F15.188 Other stimulant abuse with other stimulant-induced disorder; I25.10 Atherosclerotic heart disease of native coronary artery without angina pectoris; Z68.34 Body mass index [BMI] 34.0-34.9, adult; Z79.82 Long term (current) use of aspirin; Z79.891 Long term (current) use of opiate analgesic; Z91.19 Patient's noncompliance with other medical treatment and regimen
CPT/HCPCS: 83880; J1200; J1940; J1956; J3475; J7050; Q0092

== ENCOUNTER 2018-06-04 15:52 | Inpatient (IN) | payer OTHER ==
[~2018-06-04] VITALS: Ht 152.4 cm; Wt 93.5 kg
[~2018-06-04 15:52] MED LIST changes: +LEXAPRO20 MG PO; +LISINOPRIL10 MG PO; +LOPRESSOR50 M1
[2018-06-04 15:59] VITALS: Ht 152.4 cm; Wt 93.5 kg
[2018-06-04 16:36] LABS: BASOPHIL % 0.2 % (0-2); PLATELET COUNT 303 x10^3mcL (130-400)
[2018-06-04 16:38] LABS: RED CELL DISTRIBUTION WIDTH 20.7 % (11.5-14.5)
[2018-06-04 16:44] LABS: CALCIUM 9.8 mg/dL (8.5-10.1); CARBON DIOXIDE 22.7 mmol/L (21-32); CHLORIDE SERUM 97 mmol/L (98-107); CREATININE SERUM 1.7 mg/dL (0.6-1.0); GFR1 34 mL/min; GLUCOSE SERUM 62 mg/dL (74-106); POTASSIUM SERUM 3.8 mmol/L (3.5-5.1); SODIUM SERUM 138 mmol/L (136-145)
[2018-06-04 16:48] LABS: ALBUMIN 3.9 g/dL (3.4-5.0); ALKALINE PHOSPHATASE 222 U/L (46-116); ALT/SGPT 32 U/L (14-59); AST/SGOT 51 U/L (15-37); BILIRUBIN TOTAL 2.23 mg/dL (0.20-1.00)
[2018-06-04 16:49] LABS: TOTAL PROTEIN, SERUM 9.1 g/dL (6.4-8.2)
[2018-06-04 16:53] LABS: ovalocyte/elliptocyte 1+; target cell (codocyte) 1+; tear drop cell (dacryocyte) 1+
[2018-06-04 16:54] LABS: rbc morphology (normal/abnorm) ABNORMAL (NORMAL)
[2018-06-04 17:27] LABS: AMPHETAMINE QUAL UR POSITIVE (See below)
[2018-06-04] MEDS ORDERED: LEXAPRO10 MG PO (19:52)
[2018-06-04] MEDS ORDERED: LISINOPRIL10 MG PO (19:52)
[2018-06-04] MEDS ORDERED: FUROSEMIDE40 MG PO (19:52)
[2018-06-04] MEDS ORDERED: GABAPENTIN100 M2 PO (19:53)
[2018-06-04 20:41] VITALS: BP 118/89
[2018-06-04 20:55] VITALS: BP 118/89
[2018-06-04 22:00] VITALS: BP 120/78
[2018-06-04 23:00] VITALS: BP 118/72
[2018-06-05 06:05] VITALS: BP 111/80
== END 2018-06-05 15:46 | disposition expired | DRG 812 ==
LOC: ED 15:52 → EDBD 15:52 → ED 15:52 → DU 19:42
PROVIDERS: Emergency Medicine
PROC: 5A12012 Performance of Cardiac Output, Single, Manual (ICD-10-PCS; principal; 2018-06-04)
DX: T43.222A Poisoning by selective serotonin reuptake inhibitors, intentional self-harm, initial encounter (principal); I46.9 Cardiac arrest, cause unspecified; G93.41 Metabolic encephalopathy; F41.9 Anxiety disorder, unspecified; T43.622A Poisoning by amphetamines, intentional self-harm, initial encounter; F32.9 Major depressive disorder, single episode, unspecified; F15.10 Other stimulant abuse, uncomplicated; I42.9 Cardiomyopathy, unspecified; I25.10 Atherosclerotic heart disease of native coronary artery without angina pectoris; E16.2 Hypoglycemia, unspecified; Z59.0 Homelessness; Z88.0 Allergy status to penicillin; Z88.8 Allergy status to other drugs, medicaments and biological substances; Y92.89 Other specified places as the place of occurrence of the external cause
CPT/HCPCS: 83880; G0480; J2060; J2270; J7030; Q0092; Q0162